=== PATIENT | male | born 1965 | race Caucasian/White ===

== ENCOUNTER 2017-05-29 16:54 | Emergency (ER) | payer MEDICAID ==
[~2017-05-29] VITALS: Ht 182.9 cm; Wt 71.0 kg
[~2017-05-29 16:54] MED LIST: DIVA500T35 PO; DOCU250C91 PO; METF500T4 PO; NYST60PO TP; OLAN10TA6 PO; PANT40TA25 PO
[2017-05-29] MEDS ORDERED: ACETAMINOPHEN 325 MG TABLET PO ONE (19:00)
[2017-05-29 19:35] VITALS: BP 115/71
== END 2017-05-29 19:42 | disposition home or self-care (01) ==
LOC: EMS 16:56
DX: S39.012A Strain of muscle, fascia and tendon of lower back, initial encounter (principal); G89.29 Other chronic pain; M10.9 Gout, unspecified; E11.9 Type 2 diabetes mellitus without complications; F17.210 Nicotine dependence, cigarettes, uncomplicated; X58.XXXA Exposure to other specified factors, initial encounter; Y93.89 Activity, other specified; Y92.89 Other specified places as the place of occurrence of the external cause; Y99.8 Other external cause status
CPT/HCPCS: 82962; 99283; 99406

== ENCOUNTER 2017-10-30 14:43 | Emergency (ER) | payer MEDICAID ==
[~2017-10-30] VITALS: Ht 182.9 cm; Wt 68.2 kg
[~2017-10-30 14:43] MED LIST changes: +DIVA-78 PO; -DIVA500T35 PO; -METF500T4 PO; +METF500T6 PO
[2017-10-30 15:27] LABS: BASOPHILS % (AUTO) 0.4 % (0.0-2.0); EOSINOPHILS % (AUTO) 1.6 % (1.0-6.0); HEMATOCRIT 38.7 % (41-53); HEMOGLOBIN 13.7 g/dL (13.5-17.5); LYMPHOCYTES # (AUTO) 1.6 K/uL (1.0-4.8); LYMPHOCYTES % (AUTO) 15.2 % (22.0-44.0); MEAN CORPUSCULAR HEMOGLOBIN 32.3 pg (26.0-34.0); MEAN CORPUSCULAR HGB CONC 35.5 G/dL (31.0-37.0); MEAN CORPUSCULAR VOLUME 91 fL (80-100); MONOCYTES # (AUTO) 0.9 K/uL (0.1-1.0); MONOCYTES % (AUTO) 8.4 % (2.0-9.0); NEUTROPHILS # (AUTO) 7.8 K/uL (1.8-7.7); NEUTROPHILS % (AUTO) 74.4 % (40.0-70.0); PLATELET COUNT (AUTO) 266 K/uL (150-450); RED BLOOD CELL COUNT(AUTO) 4.25 MIL/uL (4.50-5.90); RED CELL DISTRIBUTION WIDTH 13.8 % (11.5-14.5)
[2017-10-30 15:38] LABS: ANION GAP 10 mmol/L (8-16); CALCIUM, TOTAL 8.8 mg/dL (8.8-10.5); CARBON DIOXIDE 25 mmol/L (22-29); CHLORIDE 103 mmol/L (98-107); GLOMERULAR FILTR. RATE CALC > 60 mL/min (>60); GLUCOSE,RANDOM 125 mg/dL (70-110); POTASSIUM 3.7 mmol/L (3.5-5.1); SODIUM SERUM 138 mmol/L (136-145); UREA NITROGEN, BLOOD 10 mg/dL (7-18)
[2017-10-30 15:43] LABS: ALANINE AMINOTRANSFERASE 22 U/L (12-78); ALBUMIN 3.7 g/dL (3.4-5.0); ALKALINE PHOSPHATASE 94 U/L (46-116); ASPARTATE AMINOTRANSFERASE 17 U/L (15-37); BILIRUBIN,TOTAL 0.6 mg/dL (0.1-1.0); TOTAL PROTEIN, SERUM 6.3 g/dL (6.4-8.2)
[2017-10-30 15:44] LABS: ACETAMINOPHEN < 2 mcg/mL (10-30); B-TYPE NATRIURETIC PEPTIDE 7 pg/mL (0-100); SALICYLATE 1.2 mg/dL (2.8-20.0)
[2017-10-30 15:46] LABS: AMMONIA < 10 umol/L (11-32); TROPONIN I < 0.02 ng/mL (0.00-0.05)
[2017-10-30 17:40] LABS: APPEARANCE,URINE CLEAR (CLEAR); BILIRUBIN,URINE NEGATIVE (NEGATIVE); GLUCOSE, URINE (UA) 100 mg/dL (NEGATIVE); KETONES,URINE TRACE mg/dL (NEGATIVE); LEUKOCYTE ESTERASE ,URINE NEGATIVE (NEGATIVE); NITRATE,URINE NEGATIVE (NEGATIVE); OCCULT BLOOD,URINE NEGATIVE (NEGATIVE); PROTEIN,URINE NEGATIVE (NEGATIVE)
[2017-10-30 17:47] LABS: AMPHET/METH SCREEN,URINE NEGATIVE (NEGATIVE); BARBITURATE SCREEN, URINE NEGATIVE (NEGATIVE); BENZODIAZEPINES SCREEN,URINE NEGATIVE (NEGATIVE); CANNABINOID SCREEN,URINE NEGATIVE (NEGATIVE); COCAINE SCREEN,URINE NEGATIVE (NEGATIVE); METHADONE SCREEN, URINE NEGATIVE (NEGATIVE); OPIATE SCREEN,URINE NEGATIVE (NEGATIVE)
[2017-10-30 17:48] LABS: PHENCYCLIDINE SCREEN,URINE NEGATIVE (NEGATIVE)
[2017-10-30 17:50] VITALS: BP 129/91
[2017-10-30 17:50] LABS: BACTERIA,URINE None Seen /HPF (None Seen); RBC,URINE None Seen /HPF (0-2)
[2017-10-30 17:51] LABS: SQUAMOUS EPITHELIAL CELL,UR Rare /LPF (None Seen)
== END 2017-10-30 19:06 | disposition home or self-care (01) ==
LOC: EMS 14:43
DX: F20.9 Schizophrenia, unspecified (principal); R10.84 Generalized abdominal pain; F31.9 Bipolar disorder, unspecified; E11.9 Type 2 diabetes mellitus without complications; E78.00 Pure hypercholesterolemia, unspecified; I10 Essential (primary) hypertension; G89.29 Other chronic pain; F17.210 Nicotine dependence, cigarettes, uncomplicated; Z94.0 Kidney transplant status; Z88.8 Allergy status to other drugs, medicaments and biological substances; Z91.040 Latex allergy status; Z79.84 Long term (current) use of oral hypoglycemic drugs
CPT/HCPCS: 36415; 80053; 80307; 81001; 82140; 82962; 83880; 84484; 85025; 87086; 93005; 99285; G0480 ×2; G0481

== ENCOUNTER 2017-12-02 03:47 | Emergency (ER) | payer MEDICAID ==
[~2017-12-02] VITALS: Ht 182.9 cm; Wt 61.4 kg
[~2017-12-02 03:47] MED LIST changes: +METF-960 PO; -METF500T6 PO
[2017-12-02 04:03] LABS: GLUCOSE,POINT OF CARE 174 MG/DL (70-110)
[2017-12-02] MEDS ORDERED: SODIUM PHOS/SODIUM BIPHOS 133 ML ENEMA PR ONE (04:15)
[2017-12-02 05:30] VITALS: BP 120/74
== END 2017-12-02 06:04 | disposition home or self-care (01) ==
LOC: EMS 03:47
DX: K56.41 Fecal impaction (principal); F17.210 Nicotine dependence, cigarettes, uncomplicated; Z98.890 Other specified postprocedural states; Z94.0 Kidney transplant status; F41.9 Anxiety disorder, unspecified; F31.9 Bipolar disorder, unspecified; E11.9 Type 2 diabetes mellitus without complications; E78.00 Pure hypercholesterolemia, unspecified; I10 Essential (primary) hypertension; F20.9 Schizophrenia, unspecified; N28.9 Disorder of kidney and ureter, unspecified; Z91.040 Latex allergy status; Z79.899 Other long term (current) drug therapy; Z88.8 Allergy status to other drugs, medicaments and biological substances; Z79.84 Long term (current) use of oral hypoglycemic drugs
CPT/HCPCS: 99284

== ENCOUNTER 2018-01-05 00:26 | Emergency (ER) | payer MEDICAID ==
[~2018-01-05] VITALS: Ht 185.4 cm; Wt 68.2 kg
[2018-01-05 01:46] LABS: BASOPHILS % (AUTO) 0.9 % (0.0-2.0); EOSINOPHILS % (AUTO) 3.4 % (1.0-6.0); HEMATOCRIT 40.3 % (41-53); HEMOGLOBIN 13.9 g/dL (13.5-17.5); LYMPHOCYTES # (AUTO) 1.9 K/uL (1.0-4.8); LYMPHOCYTES % (AUTO) 20.3 % (22.0-44.0); MEAN CORPUSCULAR HEMOGLOBIN 31.7 pg (26.0-34.0); MEAN CORPUSCULAR HGB CONC 34.5 G/dL (31.0-37.0); MEAN CORPUSCULAR VOLUME 92 fL (80-100); MONOCYTES # (AUTO) 0.9 K/uL (0.1-1.0); MONOCYTES % (AUTO) 9.5 % (2.0-9.0); NEUTROPHILS # (AUTO) 6.3 K/uL (1.8-7.7); NEUTROPHILS % (AUTO) 65.9 % (40.0-70.0); PLATELET COUNT (AUTO) 175 K/uL (150-450); RED BLOOD CELL COUNT(AUTO) 4.37 MIL/uL (4.50-5.90); RED CELL DISTRIBUTION WIDTH 13.9 % (11.5-14.5)
[2018-01-05 01:52] LABS: ANION GAP 11 mmol/L (8-16); CALCIUM, TOTAL 9.2 mg/dL (8.8-10.5); CARBON DIOXIDE 27 mmol/L (22-29); CHLORIDE 103 mmol/L (98-107); CREATININE 0.92 mg/dL (0.60-1.30); GLOMERULAR FILTR. RATE CALC > 60 mL/min (>60); GLUCOSE,RANDOM 141 mg/dL (70-110); POTASSIUM 3.6 mmol/L (3.5-5.1); SODIUM SERUM 141 mmol/L (136-145); UREA NITROGEN, BLOOD 12 mg/dL (7-18)
[2018-01-05 01:58] LABS: ALANINE AMINOTRANSFERASE 75 U/L (12-78); ALKALINE PHOSPHATASE 109 U/L (46-116); ASPARTATE AMINOTRANSFERASE 23 U/L (15-37); BILIRUBIN,TOTAL 0.5 mg/dL (0.1-1.0); TOTAL PROTEIN, SERUM 5.8 g/dL (6.4-8.2)
[2018-01-05] MEDS ORDERED: ACETAMINOPHEN 500 MG TABLET PO ONE (02:00)
[2018-01-05] MEDS ORDERED: MAG HYDROX/AL HYDROX/SIMETH ES 30 ML SUSPENSION UDCUP PO ONE (02:00)
[2018-01-05 02:46] VITALS: BP 117/71
[2018-01-05 02:52] LABS: AMPHET/METH SCREEN,URINE NEGATIVE (NEGATIVE); BARBITURATE SCREEN, URINE NEGATIVE (NEGATIVE); BENZODIAZEPINES SCREEN,URINE NEGATIVE (NEGATIVE); CANNABINOID SCREEN,URINE NEGATIVE (NEGATIVE); COCAINE SCREEN,URINE NEGATIVE (NEGATIVE); METHADONE SCREEN, URINE NEGATIVE (NEGATIVE); OPIATE SCREEN,URINE NEGATIVE (NEGATIVE)
[2018-01-05 02:55] LABS: PHENCYCLIDINE SCREEN,URINE NEGATIVE (NEGATIVE)
== END 2018-01-05 02:48 | disposition home or self-care (01) ==
LOC: EMS 00:27
DX: F20.9 Schizophrenia, unspecified (principal); F31.9 Bipolar disorder, unspecified; R10.13 Epigastric pain; R51 Headache; I10 Essential (primary) hypertension; E78.00 Pure hypercholesterolemia, unspecified; E11.9 Type 2 diabetes mellitus without complications; F41.9 Anxiety disorder, unspecified; F17.210 Nicotine dependence, cigarettes, uncomplicated; Z91.040 Latex allergy status; Z88.8 Allergy status to other drugs, medicaments and biological substances
CPT/HCPCS: 36415; 80053; 80307; 82962; 85025; 99285; G0480

== ENCOUNTER 2018-10-29 12:51 | Inpatient (IN) | payer MEDICAID ==
[~2018-10-29] VITALS: Ht 172.7 cm; Wt 66.6 kg
[2018-10-29] MEDS ORDERED: ASPI81 PO (13:16)
[2018-10-29] MEDS ORDERED: ATOR10TA84 PO (13:16)
[2018-10-29] MEDS ORDERED: QUET100T PO (13:16)
[2018-10-29] MEDS ORDERED: BENZ1TAB10 PO (13:16)
[2018-10-29 13:20] LABS: BASOPHILS % (AUTO) 0.5 % (0.0-2.0); EOSINOPHILS % (AUTO) 1.2 % (1.0-6.0); HEMATOCRIT 41.4 % (41-53); HEMOGLOBIN 13.7 g/dL (13.5-17.5); LYMPHOCYTES # (AUTO) 1.3 K/uL (1.0-4.8); LYMPHOCYTES % (AUTO) 15.9 % (22.0-44.0); MEAN CORPUSCULAR HEMOGLOBIN 31.8 pg (26.0-34.0); MEAN CORPUSCULAR HGB CONC 33.1 G/dL (31.0-37.0); MEAN CORPUSCULAR VOLUME 96 fL (80-100); MONOCYTES % (AUTO) 11.8 % (2.0-9.0); NEUTROPHILS # (AUTO) 5.9 K/uL (1.8-7.7); NEUTROPHILS % (AUTO) 70.6 % (40.0-70.0); PLATELET COUNT (AUTO) 196 K/uL (150-450); RED BLOOD CELL COUNT(AUTO) 4.32 MIL/uL (4.50-5.90); RED CELL DISTRIBUTION WIDTH 14.7 % (11.5-14.5)
[2018-10-29 13:25] LABS: ANION GAP 9 mmol/L (8-16); CALCIUM, TOTAL 8.8 mg/dL (8.8-10.5); CARBON DIOXIDE 29 mmol/L (22-29); CHLORIDE 102 mmol/L (98-107); CREATININE 1.15 mg/dL (0.60-1.30); GLOMERULAR FILTR. RATE CALC > 60 mL/min (>60); GLUCOSE,RANDOM 162 mg/dL (70-110); POTASSIUM 3.6 mmol/L (3.5-5.1); SODIUM SERUM 140 mmol/L (136-145); UREA NITROGEN, BLOOD 15 mg/dL (7-18)
[2018-10-29 13:30] LABS: ALANINE AMINOTRANSFERASE 27 U/L (12-78); ALBUMIN 3.4 g/dL (3.4-5.0); ALKALINE PHOSPHATASE 83 U/L (46-116); ASPARTATE AMINOTRANSFERASE 48 U/L (15-37); BILIRUBIN,TOTAL 0.5 mg/dL (0.1-1.0); TOTAL PROTEIN, SERUM 6.8 g/dL (6.4-8.2)
[2018-10-29 15:19] LABS: GLUCOSE,POINT OF CARE 148 MG/DL (70-110)
[2018-10-29 16:59] LABS: APPEARANCE,URINE CLEAR (CLEAR); GLUCOSE, URINE (UA) 100 mg/dL (NEGATIVE); KETONES,URINE 15 mg/dL (NEGATIVE); LEUKOCYTE ESTERASE ,URINE NEGATIVE (NEGATIVE); NITRATE,URINE NEGATIVE (NEGATIVE); OCCULT BLOOD,URINE NEGATIVE (NEGATIVE); PROTEIN,URINE POS 1+ (NEGATIVE)
[2018-10-29 17:00] LABS: BILIRUBIN,URINE PRELIM. POSITIVE (NEGATIVE)
[2018-10-29 17:07] LABS: BACTERIA,URINE None Seen /HPF (None Seen); RBC,URINE None Seen /HPF (0-2); SQUAMOUS EPITHELIAL CELL,UR Rare /LPF (None Seen); WBC,URINE 0-2 /HPF (0-5)
[2018-10-29 17:08] LABS: AMPHET/METH SCREEN,URINE NEGATIVE (NEGATIVE); BARBITURATE SCREEN, URINE NEGATIVE (NEGATIVE); BENZODIAZEPINES SCREEN,URINE NEGATIVE (NEGATIVE); CANNABINOID SCREEN,URINE NEGATIVE (NEGATIVE); COCAINE SCREEN,URINE NEGATIVE (NEGATIVE); METHADONE SCREEN, URINE NEGATIVE (NEGATIVE); OPIATE SCREEN,URINE NEGATIVE (NEGATIVE); PHENCYCLIDINE SCREEN,URINE NEGATIVE (NEGATIVE)
[2018-10-29] MEDS ORDERED: DIVA-76 PO (17:50)
[2018-10-29 20:35] VITALS: BP 128/78
[2018-10-29] MEDS: OLANZapine 5 MG TABLET PO SCH (21:11)
[2018-10-29] MEDS ORDERED: CloNIDine HCL 0.1 MG TABLET PO PRN (21:15)
[2018-10-29] MEDS ORDERED: MAG HYDROX/AL HYDROX/SIMETH ES 30 ML SUSPENSION UDCUP PO PRN (21:15)
[2018-10-29] MEDS ORDERED: ALBUTEROL SULFATE HFA 90 MCG/PUFF 8 GM INHALER IH PRN (21:15)
[2018-10-29] MEDS ORDERED: NICOTINE 14 MG/24 HOUR PATCH TD PRN (21:15)
[2018-10-29] MEDS ORDERED: ONDANSETRON HCL 4 MG TABLET PO PRN (21:15)
[2018-10-29] MEDS ORDERED: MAGNESIUM HYDROXIDE SUSPENSION 30 ML UDCUP PO PRN (21:15)
[2018-10-29] MEDS ORDERED: PETROLATUM,WHITE 28 GM JELLY TP PRN (21:15)
[2018-10-29] MEDS ORDERED: GuaiFENesin/D-METHORPHAN [SUGAR-FREE] 200-20MG/10 ML SYRUP UDCUP PO PRN (21:15)
[2018-10-29] MEDS ORDERED: LOPERAMIDE HCL 2 MG CAPSULE PO PRN (21:15)
[2018-10-29] MEDS ORDERED: ACETAMINOPHEN 325 MG TABLET PO PRN (21:15)
[2018-10-30] MEDS: ZOLPIDEM TARTRATE 10 MG TABLET PO PRN (00:17)
[2018-10-30 06:35] LABS: BASOPHILS % (AUTO) 0.5 % (0.0-2.0); EOSINOPHILS % (AUTO) 4.4 % (1.0-6.0); HEMATOCRIT 38.6 % (41-53); LYMPHOCYTES # (AUTO) 2.2 K/uL (1.0-4.8); MEAN CORPUSCULAR HEMOGLOBIN 32.3 pg (26.0-34.0); MEAN CORPUSCULAR HGB CONC 33.7 G/dL (31.0-37.0); MEAN CORPUSCULAR VOLUME 96 fL (80-100); MONOCYTES # (AUTO) 0.8 K/uL (0.1-1.0); MONOCYTES % (AUTO) 10.6 % (2.0-9.0); NEUTROPHILS # (AUTO) 4.4 K/uL (1.8-7.7); NEUTROPHILS % (AUTO) 56.5 % (40.0-70.0); PLATELET COUNT (AUTO) 181 K/uL (150-450); RED BLOOD CELL COUNT(AUTO) 4.03 MIL/uL (4.50-5.90); RED CELL DISTRIBUTION WIDTH 14.7 % (11.5-14.5)
[2018-10-30 06:39] LABS: HEMOGLOBIN A1C 6.9 % (4.5-6.2)
[2018-10-30] MEDS: MetFORMIN HCL 500 MG TABLET PO SCH ×2 (06:42→16:18)
[2018-10-30 06:59] LABS: ALANINE AMINOTRANSFERASE 20 U/L (12-78); ALBUMIN 2.7 g/dL (3.4-5.0); ALKALINE PHOSPHATASE 70 U/L (46-116); ANION GAP 10 mmol/L (8-16); ASPARTATE AMINOTRANSFERASE 40 U/L (15-37); BILIRUBIN,TOTAL 0.7 mg/dL (0.1-1.0); CALCIUM, TOTAL 8.3 mg/dL (8.8-10.5); CARBON DIOXIDE 27 mmol/L (22-29); CHLORIDE 102 mmol/L (98-107); CHOL/HDL RATIO 2.1 (4.2-7.3); CHOLESTEROL 96 mg/dL (131-200); CREATININE 0.82 mg/dL (0.60-1.30); GLOMERULAR FILTR. RATE CALC > 60 mL/min (>60); GLUCOSE,RANDOM 90 mg/dL (70-110); HDL CHOLESTEROL 45 mg/dL (40-60); LDL CHOL (CALC.) 37 mg/dL (0-130); POTASSIUM 3.5 mmol/L (3.5-5.1); SODIUM SERUM 139 mmol/L (136-145); TOTAL PROTEIN, SERUM 5.6 g/dL (6.4-8.2); TRIGLYCERIDES 70 mg/dL (15-150); UREA NITROGEN, BLOOD 12 mg/dL (7-18)
[2018-10-30] MEDS: DOCUSATE SODIUM 250 MG CAPSULE PO SCH ×2 (08:51→16:18)
[2018-10-30] MEDS: NYSTATIN 30 GM OINTMENT TP SCH ×2 (08:51→16:19)
[2018-10-30] MEDS: PANTOPRAZOLE SODIUM 40 MG DR TABLET PO SCH (08:51)
[2018-10-30] MEDS: OLANZapine 5 MG TABLET PO SCH ×2 (08:52→16:18)
[2018-10-30] MEDS: ASPIRIN 81 MG CHEWABLE TABLET PO SCH (08:52)
[2018-10-30] MEDS: BuPROPion HCL XL 150 MG ER TABLET PO SCH (08:54)
[2018-10-30 09:00] VITALS: BP 121/74
[2018-10-30 16:38] VITALS: BP 129/90
[2018-10-30] MEDS: ATORVASTATIN CALCIUM 10 MG TABLET PO SCH (20:27)
[2018-10-30] MEDS: DIVALPROEX SODIUM 250 MG DR TABLET PO SCH (20:28)
[2018-10-30] MEDS: OLANZapine 10 MG RAPDIS TABLET PO SCH (20:30)
[2018-10-31 06:37] VITALS: BP 113/73
[2018-10-31] MEDS: MetFORMIN HCL 500 MG TABLET PO SCH ×2 (06:38→16:59)
[2018-10-31] MEDS: ASPIRIN 81 MG CHEWABLE TABLET PO SCH (08:54)
[2018-10-31] MEDS: OLANZapine 5 MG TABLET PO SCH ×2 (08:54→16:59)
[2018-10-31] MEDS: PANTOPRAZOLE SODIUM 40 MG DR TABLET PO SCH (08:54)
[2018-10-31] MEDS: BuPROPion HCL XL 150 MG ER TABLET PO SCH (08:54)
[2018-10-31] MEDS: NYSTATIN 30 GM OINTMENT TP SCH ×2 (09:21→17:02)
[2018-10-31] MEDS: DOCUSATE SODIUM 250 MG CAPSULE PO SCH ×2 (09:21→17:03)
[2018-10-31 09:43] VITALS: BP 127/66
[2018-10-31] MEDS: DOCUSATE SODIUM 100 MG CAPSULE PO PRN (16:59)
[2018-10-31 17:14] VITALS: BP 131/89
[2018-10-31] MEDS: ATORVASTATIN CALCIUM 10 MG TABLET PO SCH (20:38)
[2018-10-31] MEDS: DIVALPROEX SODIUM 250 MG DR TABLET PO SCH (20:39)
[2018-10-31] MEDS: OLANZapine 10 MG RAPDIS TABLET PO SCH (20:40)
[2018-11-01 06:40] LABS: GLUCOMETER DEV NAME(LOC) 3E.I; GLUCOSE,POINT OF CARE 118 MG/DL (70-110)
[2018-11-01] MEDS: HALOPERIDOL 5 MG TABLET PO PRN (06:44)
[2018-11-01] MEDS: MetFORMIN HCL 500 MG TABLET PO SCH ×2 (07:04→17:15)
[2018-11-01] MEDS: OLANZapine 5 MG TABLET PO SCH ×2 (08:38→17:16)
[2018-11-01] MEDS: ASPIRIN 81 MG CHEWABLE TABLET PO SCH (08:38)
[2018-11-01] MEDS: DOCUSATE SODIUM 250 MG CAPSULE PO SCH ×2 (08:38→17:16)
[2018-11-01] MEDS: BuPROPion HCL XL 150 MG ER TABLET PO SCH (08:38)
[2018-11-01] MEDS: NYSTATIN 30 GM OINTMENT TP SCH ×2 (08:38→17:15)
[2018-11-01] MEDS: PANTOPRAZOLE SODIUM 40 MG DR TABLET PO SCH (08:38)
[2018-11-01 09:52] VITALS: BP 130/83
[2018-11-01 16:30] VITALS: BP 131/87
[2018-11-01 17:14] LABS: GLUCOMETER DEV NAME(LOC) 3E.I; GLUCOSE,POINT OF CARE 139 MG/DL (70-110)
[2018-11-01] MEDS: DOCUSATE SODIUM 100 MG CAPSULE PO PRN (17:15)
[2018-11-01] MEDS: DIVALPROEX SODIUM 250 MG DR TABLET PO SCH (20:41)
[2018-11-01] MEDS: ATORVASTATIN CALCIUM 10 MG TABLET PO SCH (20:41)
[2018-11-01] MEDS: OLANZapine 10 MG RAPDIS TABLET PO SCH (20:41)
[2018-11-02 05:35] LABS: GLUCOMETER DEV NAME(LOC) 3E.I; GLUCOSE,POINT OF CARE 88 MG/DL (70-110)
[2018-11-02] MEDS: MetFORMIN HCL 500 MG TABLET PO SCH ×2 (06:54→16:50)
[2018-11-02] MEDS: OLANZapine 5 MG TABLET PO SCH ×2 (08:38→16:50)
[2018-11-02] MEDS: PANTOPRAZOLE SODIUM 40 MG DR TABLET PO SCH (08:38)
[2018-11-02] MEDS: DOCUSATE SODIUM 250 MG CAPSULE PO SCH ×2 (08:38→16:50)
[2018-11-02] MEDS: ASPIRIN 81 MG CHEWABLE TABLET PO SCH (08:38)
[2018-11-02] MEDS: NYSTATIN 30 GM OINTMENT TP SCH ×2 (08:38→17:55)
[2018-11-02] MEDS: BuPROPion HCL XL 150 MG ER TABLET PO SCH (08:38)
[2018-11-02 10:24] VITALS: BP 118/87
[2018-11-02 17:01] LABS: GLUCOMETER DEV NAME(LOC) 3E.I; GLUCOSE,POINT OF CARE 162 MG/DL (70-110)
[2018-11-02] MEDS: OLANZapine 10 MG RAPDIS TABLET PO SCH (21:13)
[2018-11-02] MEDS: ATORVASTATIN CALCIUM 10 MG TABLET PO SCH (21:13)
[2018-11-02] MEDS: DIVALPROEX SODIUM 250 MG DR TABLET PO SCH (21:13)
[2018-11-03] MEDS: ZOLPIDEM TARTRATE 10 MG TABLET PO PRN (00:14)
[2018-11-03] MEDS: HALOPERIDOL 5 MG TABLET PO PRN (00:14)
[2018-11-03 05:45] LABS: GLUCOMETER DEV NAME(LOC) 3E.I; GLUCOSE,POINT OF CARE 91 MG/DL (70-110)
[2018-11-03] MEDS: MetFORMIN HCL 500 MG TABLET PO SCH ×2 (06:36→17:15)
[2018-11-03 08:00] VITALS: BP 112/85
[2018-11-03] MEDS: OLANZapine 5 MG TABLET PO SCH ×2 (10:57→17:15)
[2018-11-03] MEDS: ASPIRIN 81 MG CHEWABLE TABLET PO SCH (10:58)
[2018-11-03] MEDS: PANTOPRAZOLE SODIUM 40 MG DR TABLET PO SCH (10:58)
[2018-11-03] MEDS: BuPROPion HCL XL 150 MG ER TABLET PO SCH (10:58)
[2018-11-03] MEDS: DOCUSATE SODIUM 100 MG CAPSULE PO PRN (10:58)
[2018-11-03] MEDS: DOCUSATE SODIUM 250 MG CAPSULE PO SCH ×2 (10:59→17:15)
[2018-11-03] MEDS: NYSTATIN 30 GM OINTMENT TP SCH ×2 (10:59→17:15)
[2018-11-03 16:47] VITALS: BP 120/80
[2018-11-03 17:45] LABS: GLUCOMETER DEV NAME(LOC) 3E.I; GLUCOSE,POINT OF CARE 136 MG/DL (70-110)
[2018-11-03] MEDS: ATORVASTATIN CALCIUM 10 MG TABLET PO SCH (20:40)
[2018-11-03] MEDS: OLANZapine 10 MG RAPDIS TABLET PO SCH (20:40)
[2018-11-03] MEDS: DIVALPROEX SODIUM 250 MG DR TABLET PO SCH (20:40)
[2018-11-04 06:25] LABS: GLUCOMETER DEV NAME(LOC) 3E.I; GLUCOSE,POINT OF CARE 95 MG/DL (70-110)
[2018-11-04] MEDS: MetFORMIN HCL 500 MG TABLET PO SCH ×2 (06:54→17:09)
[2018-11-04 09:45] VITALS: BP 113/67
[2018-11-04] MEDS: ASPIRIN 81 MG CHEWABLE TABLET PO SCH (10:27)
[2018-11-04] MEDS: NYSTATIN 30 GM OINTMENT TP SCH ×2 (10:27→17:10)
[2018-11-04] MEDS: OLANZapine 5 MG TABLET PO SCH (10:27)
[2018-11-04] MEDS: BuPROPion HCL XL 150 MG ER TABLET PO SCH (10:27)
[2018-11-04] MEDS: PANTOPRAZOLE SODIUM 40 MG DR TABLET PO SCH (10:27)
[2018-11-04] MEDS: DOCUSATE SODIUM 250 MG CAPSULE PO SCH ×2 (10:29→17:09)
[2018-11-04 17:25] LABS: GLUCOMETER DEV NAME(LOC) 3E.I; GLUCOSE,POINT OF CARE 114 MG/DL (70-110)
[2018-11-04 18:39] VITALS: BP 129/66
[2018-11-04] MEDS: DIVALPROEX SODIUM 250 MG DR TABLET PO SCH (21:17)
[2018-11-04] MEDS: ATORVASTATIN CALCIUM 10 MG TABLET PO SCH (21:17)
[2018-11-04] MEDS: OLANZapine 10 MG TABLET PO SCH (21:30)
[2018-11-05 06:15] LABS: GLUCOMETER DEV NAME(LOC) 3E.I; GLUCOSE,POINT OF CARE 99 MG/DL (70-110)
[2018-11-05] MEDS: MetFORMIN HCL 500 MG TABLET PO SCH ×2 (06:37→16:58)
[2018-11-05 08:00] VITALS: BP 111/77
[2018-11-05] MEDS: DOCUSATE SODIUM 250 MG CAPSULE PO SCH ×2 (09:45→16:26)
[2018-11-05] MEDS: PANTOPRAZOLE SODIUM 40 MG DR TABLET PO SCH (09:45)
[2018-11-05] MEDS: BuPROPion HCL XL 150 MG ER TABLET PO SCH (09:45)
[2018-11-05] MEDS: ASPIRIN 81 MG CHEWABLE TABLET PO SCH (09:45)
[2018-11-05] MEDS: OLANZapine 10 MG TABLET PO SCH ×2 (09:45→20:09)
[2018-11-05] MEDS: NYSTATIN 30 GM OINTMENT TP SCH ×2 (09:46→16:15)
[2018-11-05] MEDS: DOCUSATE SODIUM 100 MG CAPSULE PO PRN (16:15)
[2018-11-05 19:03] VITALS: BP 104/72
[2018-11-05 20:05] LABS: GLUCOMETER DEV NAME(LOC) 3E.I; GLUCOSE,POINT OF CARE 146 MG/DL (70-110)
[2018-11-05] MEDS: ATORVASTATIN CALCIUM 10 MG TABLET PO SCH (20:09)
[2018-11-05] MEDS: DIVALPROEX SODIUM 500 MG DR TABLET PO SCH (20:10)
[2018-11-05] MEDS: ZOLPIDEM TARTRATE 10 MG TABLET PO PRN (21:11)
[2018-11-06 05:25] LABS: GLUCOMETER DEV NAME(LOC) 3E.I; GLUCOSE,POINT OF CARE 86 MG/DL (70-110)
[2018-11-06] MEDS: MetFORMIN HCL 500 MG TABLET PO SCH ×2 (06:39→16:19)
[2018-11-06 08:00] VITALS: BP 118/55
[2018-11-06] MEDS: DIVALPROEX SODIUM 500 MG DR TABLET PO SCH ×2 (09:17→20:32)
[2018-11-06] MEDS: PANTOPRAZOLE SODIUM 40 MG DR TABLET PO SCH (09:17)
[2018-11-06] MEDS: OLANZapine 10 MG TABLET PO SCH ×2 (09:17→20:32)
[2018-11-06] MEDS: DOCUSATE SODIUM 250 MG CAPSULE PO SCH ×2 (09:17→16:19)
[2018-11-06] MEDS: ASPIRIN 81 MG CHEWABLE TABLET PO SCH (09:17)
[2018-11-06] MEDS: BuPROPion HCL XL 150 MG ER TABLET PO SCH (09:17)
[2018-11-06] MEDS: NYSTATIN 30 GM OINTMENT TP SCH ×2 (09:17→16:19)
[2018-11-06 16:25] LABS: GLUCOMETER DEV NAME(LOC) 3E.C; GLUCOSE,POINT OF CARE 119 MG/DL (70-110)
[2018-11-06] MEDS: ATORVASTATIN CALCIUM 10 MG TABLET PO SCH (20:32)
[2018-11-06 20:33] VITALS: BP 111/81
[2018-11-07 05:41] LABS: GLUCOMETER DEV NAME(LOC) 3E.I; GLUCOSE,POINT OF CARE 107 MG/DL (70-110)
[2018-11-07] MEDS: MetFORMIN HCL 500 MG TABLET PO SCH ×2 (06:38→16:33)
[2018-11-07] MEDS: DOCUSATE SODIUM 250 MG CAPSULE PO SCH ×2 (08:38→16:33)
[2018-11-07] MEDS: ASPIRIN 81 MG CHEWABLE TABLET PO SCH (08:38)
[2018-11-07] MEDS: DIVALPROEX SODIUM 500 MG DR TABLET PO SCH ×2 (08:38→21:15)
[2018-11-07] MEDS: BuPROPion HCL XL 150 MG ER TABLET PO SCH (08:38)
[2018-11-07] MEDS: NYSTATIN 30 GM OINTMENT TP SCH ×2 (08:38→16:33)
[2018-11-07] MEDS: PANTOPRAZOLE SODIUM 40 MG DR TABLET PO SCH (08:38)
[2018-11-07] MEDS: OLANZapine 10 MG TABLET PO SCH ×2 (08:38→21:15)
[2018-11-07 10:33] VITALS: BP 134/76
[2018-11-07 16:35] LABS: GLUCOMETER DEV NAME(LOC) 3E.I; GLUCOSE,POINT OF CARE 119 MG/DL (70-110)
[2018-11-07 16:55] VITALS: BP 127/85
[2018-11-07] MEDS: ATORVASTATIN CALCIUM 10 MG TABLET PO SCH (21:15)
[2018-11-08 06:07] LABS: BASOPHILS % (AUTO) 0.5 % (0.0-2.0); HEMATOCRIT 39.4 % (41-53); HEMOGLOBIN 13.5 g/dL (13.5-17.5); LYMPHOCYTES # (AUTO) 2.3 K/uL (1.0-4.8); LYMPHOCYTES % (AUTO) 38.4 % (22.0-44.0); MEAN CORPUSCULAR HEMOGLOBIN 32.7 pg (26.0-34.0); MEAN CORPUSCULAR HGB CONC 34.3 G/dL (31.0-37.0); MEAN CORPUSCULAR VOLUME 95 fL (80-100); MONOCYTES # (AUTO) 0.8 K/uL (0.1-1.0); MONOCYTES % (AUTO) 12.8 % (2.0-9.0); NEUTROPHILS # (AUTO) 2.6 K/uL (1.8-7.7); NEUTROPHILS % (AUTO) 43.3 % (40.0-70.0); PLATELET COUNT (AUTO) 212 K/uL (150-450); RED BLOOD CELL COUNT(AUTO) 4.13 MIL/uL (4.50-5.90); RED CELL DISTRIBUTION WIDTH 14.5 % (11.5-14.5)
[2018-11-08 06:17] LABS: GLUCOMETER DEV NAME(LOC) 3E.I; GLUCOSE,POINT OF CARE 103 MG/DL (70-110)
[2018-11-08] MEDS: MetFORMIN HCL 500 MG TABLET PO SCH ×2 (06:38→17:20)
[2018-11-08 06:39] LABS: ALANINE AMINOTRANSFERASE 16 U/L (12-78); ALKALINE PHOSPHATASE 64 U/L (46-116); ANION GAP 10 mmol/L (8-16); ASPARTATE AMINOTRANSFERASE 17 U/L (15-37); BILIRUBIN,TOTAL 0.4 mg/dL (0.1-1.0); CALCIUM, TOTAL 8.8 mg/dL (8.8-10.5); CARBON DIOXIDE 29 mmol/L (22-29); CHLORIDE 106 mmol/L (98-107); CREATININE 0.89 mg/dL (0.60-1.30); GLOMERULAR FILTR. RATE CALC > 60 mL/min (>60); GLUCOSE,RANDOM 101 mg/dL (70-110); POTASSIUM 3.9 mmol/L (3.5-5.1); SODIUM SERUM 145 mmol/L (136-145); TOTAL PROTEIN, SERUM 5.7 g/dL (6.4-8.2); UREA NITROGEN, BLOOD 15 mg/dL (7-18)
[2018-11-08] MEDS: BuPROPion HCL XL 150 MG ER TABLET PO SCH (08:49)
[2018-11-08] MEDS: OLANZapine 10 MG TABLET PO SCH ×2 (08:49→20:10)
[2018-11-08] MEDS: ASPIRIN 81 MG CHEWABLE TABLET PO SCH (08:49)
[2018-11-08] MEDS: PANTOPRAZOLE SODIUM 40 MG DR TABLET PO SCH (08:49)
[2018-11-08] MEDS: DIVALPROEX SODIUM 500 MG DR TABLET PO SCH ×2 (08:50→20:10)
[2018-11-08] MEDS: DOCUSATE SODIUM 250 MG CAPSULE PO SCH ×2 (08:50→17:20)
[2018-11-08] MEDS: NYSTATIN 30 GM OINTMENT TP SCH ×2 (08:50→17:21)
[2018-11-08 10:32] VITALS: BP 102/74
[2018-11-08 17:46] LABS: GLUCOMETER DEV NAME(LOC) 3E.I; GLUCOSE,POINT OF CARE 133 MG/DL (70-110)
[2018-11-08 17:47] VITALS: BP 141/77
[2018-11-08] MEDS: ATORVASTATIN CALCIUM 10 MG TABLET PO SCH (20:10)
[2018-11-09 06:40] LABS: GLUCOMETER DEV NAME(LOC) 3E.I; GLUCOSE,POINT OF CARE 106 MG/DL (70-110)
[2018-11-09] MEDS: MetFORMIN HCL 500 MG TABLET PO SCH ×2 (06:46→17:04)
[2018-11-09] MEDS: NYSTATIN 30 GM OINTMENT TP SCH ×2 (09:00→17:04)
[2018-11-09] MEDS: OLANZapine 10 MG TABLET PO SCH ×2 (10:30→20:18)
[2018-11-09] MEDS: DIVALPROEX SODIUM 500 MG DR TABLET PO SCH ×2 (10:30→20:18)
[2018-11-09] MEDS: PANTOPRAZOLE SODIUM 40 MG DR TABLET PO SCH (10:30)
[2018-11-09] MEDS: BuPROPion HCL XL 150 MG ER TABLET PO SCH (10:30)
[2018-11-09] MEDS: DOCUSATE SODIUM 250 MG CAPSULE PO SCH ×2 (10:33→17:04)
[2018-11-09] MEDS: ASPIRIN 81 MG CHEWABLE TABLET PO SCH (10:35)
[2018-11-09 13:37] VITALS: BP 107/76
[2018-11-09 16:55] LABS: GLUCOMETER DEV NAME(LOC) 3E.I; GLUCOSE,POINT OF CARE 106 MG/DL (70-110)
[2018-11-09 16:57] VITALS: BP 111/78
[2018-11-09] MEDS: ATORVASTATIN CALCIUM 10 MG TABLET PO SCH (20:18)
[2018-11-10 06:07] LABS: GLUCOMETER DEV NAME(LOC) 3E.I; GLUCOSE,POINT OF CARE 120 MG/DL (70-110)
[2018-11-10] MEDS: MetFORMIN HCL 500 MG TABLET PO SCH ×2 (06:39→16:55)
[2018-11-10] MEDS: DOCUSATE SODIUM 250 MG CAPSULE PO SCH ×2 (09:21→16:55)
[2018-11-10] MEDS: OLANZapine 10 MG TABLET PO SCH ×2 (09:21→20:38)
[2018-11-10] MEDS: BuPROPion HCL XL 150 MG ER TABLET PO SCH (09:21)
[2018-11-10] MEDS: DIVALPROEX SODIUM 500 MG DR TABLET PO SCH ×2 (09:21→20:38)
[2018-11-10] MEDS: ASPIRIN 81 MG CHEWABLE TABLET PO SCH (09:21)
[2018-11-10] MEDS: PANTOPRAZOLE SODIUM 40 MG DR TABLET PO SCH (09:21)
[2018-11-10 10:39] VITALS: BP 105/76
[2018-11-10] MEDS: NYSTATIN 30 GM OINTMENT TP SCH ×2 (11:34→16:55)
[2018-11-10 17:26] LABS: GLUCOMETER DEV NAME(LOC) 3E.I; GLUCOSE,POINT OF CARE 203 MG/DL (70-110)
[2018-11-10] MEDS: ATORVASTATIN CALCIUM 10 MG TABLET PO SCH (20:38)
[2018-11-11 00:21] VITALS: BP 120/76
[2018-11-11] MEDS: ZOLPIDEM TARTRATE 10 MG TABLET PO PRN (00:23)
[2018-11-11 06:26] LABS: GLUCOMETER DEV NAME(LOC) 3E.I; GLUCOSE,POINT OF CARE 96 MG/DL (70-110)
[2018-11-11] MEDS: MetFORMIN HCL 500 MG TABLET PO SCH ×2 (06:54→16:18)
[2018-11-11] MEDS: DOCUSATE SODIUM 250 MG CAPSULE PO SCH ×2 (09:32→16:19)
[2018-11-11] MEDS: PANTOPRAZOLE SODIUM 40 MG DR TABLET PO SCH (09:32)
[2018-11-11] MEDS: DIVALPROEX SODIUM 500 MG DR TABLET PO SCH ×2 (09:32→20:23)
[2018-11-11] MEDS: OLANZapine 10 MG TABLET PO SCH (09:33)
[2018-11-11] MEDS: BuPROPion HCL XL 150 MG ER TABLET PO SCH (09:33)
[2018-11-11] MEDS: ASPIRIN 81 MG CHEWABLE TABLET PO SCH (09:33)
[2018-11-11 10:39] VITALS: BP 95/73
[2018-11-11] MEDS: NYSTATIN 30 GM OINTMENT TP SCH ×2 (11:00→16:18)
[2018-11-11 16:39] LABS: GLUCOMETER DEV NAME(LOC) 3E.I; GLUCOSE,POINT OF CARE 154 MG/DL (70-110)
[2018-11-11 19:44] VITALS: BP 131/79
[2018-11-11] MEDS: OLANZapine 7.5 MG TABLET PO SCH (20:23)
[2018-11-11] MEDS: ATORVASTATIN CALCIUM 10 MG TABLET PO SCH (20:23)
[2018-11-12] MEDS: ZOLPIDEM TARTRATE 10 MG TABLET PO PRN (00:04)
[2018-11-12 05:30] LABS: GLUCOMETER DEV NAME(LOC) 3E.I; GLUCOSE,POINT OF CARE 97 MG/DL (70-110)
[2018-11-12] MEDS: MetFORMIN HCL 500 MG TABLET PO SCH ×2 (06:35→17:36)
[2018-11-12] MEDS: DOCUSATE SODIUM 250 MG CAPSULE PO SCH ×2 (10:00→17:36)
[2018-11-12] MEDS: PANTOPRAZOLE SODIUM 40 MG DR TABLET PO SCH (10:00)
[2018-11-12] MEDS: ASPIRIN 81 MG CHEWABLE TABLET PO SCH (10:00)
[2018-11-12] MEDS: BuPROPion HCL XL 150 MG ER TABLET PO SCH (10:00)
[2018-11-12] MEDS: OLANZapine 7.5 MG TABLET PO SCH ×2 (10:00→20:29)
[2018-11-12] MEDS: DIVALPROEX SODIUM 500 MG DR TABLET PO SCH ×2 (10:00→20:29)
[2018-11-12] MEDS: NYSTATIN 30 GM OINTMENT TP SCH ×2 (10:00→17:36)
[2018-11-12 10:27] VITALS: BP 119/77
[2018-11-12 17:21] LABS: GLUCOMETER DEV NAME(LOC) 3E.I; GLUCOSE,POINT OF CARE 108 MG/DL (70-110)
[2018-11-12 17:55] VITALS: BP 116/84
[2018-11-12] MEDS: ATORVASTATIN CALCIUM 10 MG TABLET PO SCH (20:29)
[2018-11-13] MEDS: ZOLPIDEM TARTRATE 10 MG TABLET PO PRN (00:02)
[2018-11-13 02:15] VITALS: BP 118/71
[2018-11-13 06:10] LABS: GLUCOMETER DEV NAME(LOC) 3E.I; GLUCOSE,POINT OF CARE 93 MG/DL (70-110)
[2018-11-13] MEDS: MetFORMIN HCL 500 MG TABLET PO SCH ×2 (06:59→16:24)
[2018-11-13] MEDS: NYSTATIN 30 GM OINTMENT TP SCH ×2 (09:54→16:23)
[2018-11-13] MEDS: BuPROPion HCL XL 150 MG ER TABLET PO SCH (09:56)
[2018-11-13] MEDS: OLANZapine 7.5 MG TABLET PO SCH ×2 (09:56→20:29)
[2018-11-13] MEDS: PANTOPRAZOLE SODIUM 40 MG DR TABLET PO SCH (09:56)
[2018-11-13] MEDS: ASPIRIN 81 MG CHEWABLE TABLET PO SCH (09:56)
[2018-11-13] MEDS: DOCUSATE SODIUM 250 MG CAPSULE PO SCH ×2 (09:57→16:23)
[2018-11-13] MEDS: DIVALPROEX SODIUM 500 MG DR TABLET PO SCH ×2 (09:57→20:28)
[2018-11-13 10:16] VITALS: BP 121/68
[2018-11-13 16:43] VITALS: BP 117/80
[2018-11-13 17:35] LABS: GLUCOMETER DEV NAME(LOC) 3E.I; GLUCOSE,POINT OF CARE 110 MG/DL (70-110)
[2018-11-13] MEDS: ATORVASTATIN CALCIUM 10 MG TABLET PO SCH (20:28)
[2018-11-14 03:37] VITALS: BP 115/94
[2018-11-14 05:32] LABS: GLUCOMETER DEV NAME(LOC) 3E.I; GLUCOSE,POINT OF CARE 93 MG/DL (70-110)
[2018-11-14] MEDS: MetFORMIN HCL 500 MG TABLET PO SCH ×2 (06:50→17:01)
[2018-11-14 08:00] VITALS: BP 128/90
[2018-11-14] MEDS: BuPROPion HCL XL 150 MG ER TABLET PO SCH (09:40)
[2018-11-14] MEDS: PANTOPRAZOLE SODIUM 40 MG DR TABLET PO SCH (09:40)
[2018-11-14] MEDS: ASPIRIN 81 MG CHEWABLE TABLET PO SCH (09:40)
[2018-11-14] MEDS: OLANZapine 7.5 MG TABLET PO SCH ×2 (09:41→20:22)
[2018-11-14] MEDS: DOCUSATE SODIUM 250 MG CAPSULE PO SCH ×2 (09:41→16:17)
[2018-11-14] MEDS: DIVALPROEX SODIUM 500 MG DR TABLET PO SCH ×2 (09:42→20:22)
[2018-11-14] MEDS: NYSTATIN 30 GM OINTMENT TP SCH ×2 (09:49→16:15)
[2018-11-14] MEDS: DOCUSATE SODIUM 100 MG CAPSULE PO PRN (16:16)
[2018-11-14 17:04] VITALS: BP 105/85
[2018-11-14] MEDS: ATORVASTATIN CALCIUM 10 MG TABLET PO SCH (20:22)
[2018-11-14] MEDS: ZOLPIDEM TARTRATE 10 MG TABLET PO PRN (20:23)
[2018-11-15 06:31] LABS: GLUCOMETER DEV NAME(LOC) 3E.I; GLUCOSE,POINT OF CARE 74 MG/DL (70-110)
[2018-11-15] MEDS: MetFORMIN HCL 500 MG TABLET PO SCH ×2 (06:49→18:53)
[2018-11-15] MEDS: PANTOPRAZOLE SODIUM 40 MG DR TABLET PO SCH (08:49)
[2018-11-15] MEDS: DOCUSATE SODIUM 250 MG CAPSULE PO SCH ×2 (08:49→18:52)
[2018-11-15] MEDS: BuPROPion HCL XL 150 MG ER TABLET PO SCH (08:49)
[2018-11-15] MEDS: OLANZapine 7.5 MG TABLET PO SCH ×2 (08:49→20:20)
[2018-11-15] MEDS: ASPIRIN 81 MG CHEWABLE TABLET PO SCH (08:49)
[2018-11-15] MEDS: NYSTATIN 30 GM OINTMENT TP SCH ×2 (08:49→18:53)
[2018-11-15] MEDS: DIVALPROEX SODIUM 500 MG DR TABLET PO SCH ×2 (08:49→20:20)
[2018-11-15 09:46] VITALS: BP 105/69
[2018-11-15 16:38] VITALS: BP 148/82
[2018-11-15 16:51] LABS: GLUCOMETER DEV NAME(LOC) 3E.I; GLUCOSE,POINT OF CARE 95 MG/DL (70-110)
[2018-11-15] MEDS: ATORVASTATIN CALCIUM 10 MG TABLET PO SCH (20:20)
[2018-11-16 06:20] LABS: GLUCOMETER DEV NAME(LOC) 3E.I; GLUCOSE,POINT OF CARE 89 MG/DL (70-110)
[2018-11-16] MEDS: MetFORMIN HCL 500 MG TABLET PO SCH ×2 (06:48→17:33)
[2018-11-16] MEDS: ASPIRIN 81 MG CHEWABLE TABLET PO SCH (09:00)
[2018-11-16] MEDS: DIVALPROEX SODIUM 500 MG DR TABLET PO SCH ×2 (09:01→20:13)
[2018-11-16] MEDS: BuPROPion HCL XL 150 MG ER TABLET PO SCH (09:01)
[2018-11-16] MEDS: PANTOPRAZOLE SODIUM 40 MG DR TABLET PO SCH (09:01)
[2018-11-16] MEDS: OLANZapine 7.5 MG TABLET PO SCH ×2 (09:01→20:13)
[2018-11-16] MEDS: DOCUSATE SODIUM 250 MG CAPSULE PO SCH ×2 (09:01→17:05)
[2018-11-16] MEDS: NYSTATIN 30 GM OINTMENT TP SCH ×2 (09:02→17:06)
[2018-11-16 10:04] VITALS: BP 103/78
[2018-11-16 17:07] VITALS: BP 133/71
[2018-11-16 17:20] LABS: GLUCOMETER DEV NAME(LOC) 3E.I; GLUCOSE,POINT OF CARE 142 MG/DL (70-110)
[2018-11-16] MEDS: ATORVASTATIN CALCIUM 10 MG TABLET PO SCH (20:13)
[2018-11-17 05:25] LABS: GLUCOMETER DEV NAME(LOC) 3E.I; GLUCOSE,POINT OF CARE 116 MG/DL (70-110)
[2018-11-17] MEDS: MetFORMIN HCL 500 MG TABLET PO SCH ×2 (06:35→16:42)
[2018-11-17] MEDS: BuPROPion HCL XL 150 MG ER TABLET PO SCH (09:07)
[2018-11-17] MEDS: OLANZapine 7.5 MG TABLET PO SCH ×2 (09:07→20:16)
[2018-11-17] MEDS: PANTOPRAZOLE SODIUM 40 MG DR TABLET PO SCH (09:07)
[2018-11-17] MEDS: DIVALPROEX SODIUM 500 MG DR TABLET PO SCH ×2 (09:07→20:17)
[2018-11-17] MEDS: DOCUSATE SODIUM 250 MG CAPSULE PO SCH ×2 (09:07→16:42)
[2018-11-17] MEDS: ASPIRIN 81 MG CHEWABLE TABLET PO SCH (09:07)
[2018-11-17] MEDS: NYSTATIN 30 GM OINTMENT TP SCH ×2 (11:14→16:43)
[2018-11-17 12:43] VITALS: BP 102/72
[2018-11-17 17:46] LABS: GLUCOMETER DEV NAME(LOC) 3E.I; GLUCOSE,POINT OF CARE 90 MG/DL (70-110)
[2018-11-17 18:47] VITALS: BP 107/72
[2018-11-17] MEDS: ATORVASTATIN CALCIUM 10 MG TABLET PO SCH (20:16)
[2018-11-18 06:25] LABS: GLUCOMETER DEV NAME(LOC) 3E.I; GLUCOSE,POINT OF CARE 102 MG/DL (70-110)
[2018-11-18] MEDS: MetFORMIN HCL 500 MG TABLET PO SCH ×2 (06:52→17:14)
[2018-11-18] MEDS: BuPROPion HCL XL 150 MG ER TABLET PO SCH (10:20)
[2018-11-18] MEDS: DOCUSATE SODIUM 250 MG CAPSULE PO SCH ×2 (10:20→17:13)
[2018-11-18] MEDS: PANTOPRAZOLE SODIUM 40 MG DR TABLET PO SCH (10:20)
[2018-11-18] MEDS: NYSTATIN 30 GM OINTMENT TP SCH ×2 (10:20→17:30)
[2018-11-18] MEDS: OLANZapine 7.5 MG TABLET PO SCH ×2 (10:20→20:15)
[2018-11-18] MEDS: ASPIRIN 81 MG CHEWABLE TABLET PO SCH (10:21)
[2018-11-18] MEDS: DIVALPROEX SODIUM 500 MG DR TABLET PO SCH ×2 (10:21→20:15)
[2018-11-18 14:58] VITALS: BP 86/60
[2018-11-18 16:40] LABS: GLUCOMETER DEV NAME(LOC) 3E.I; GLUCOSE,POINT OF CARE 152 MG/DL (70-110)
[2018-11-18 16:46] VITALS: BP 112/79
[2018-11-18] MEDS: ATORVASTATIN CALCIUM 10 MG TABLET PO SCH (20:15)
[2018-11-19] MEDS: MetFORMIN HCL 500 MG TABLET PO SCH ×2 (07:03→16:22)
[2018-11-19 08:53] VITALS: BP 99/54
[2018-11-19] MEDS: NYSTATIN 30 GM OINTMENT TP SCH ×2 (09:45→16:14)
[2018-11-19] MEDS: BuPROPion HCL XL 150 MG ER TABLET PO SCH (09:46)
[2018-11-19] MEDS: OLANZapine 7.5 MG TABLET PO SCH ×2 (09:46→20:14)
[2018-11-19] MEDS: PANTOPRAZOLE SODIUM 40 MG DR TABLET PO SCH (09:46)
[2018-11-19] MEDS: DIVALPROEX SODIUM 500 MG DR TABLET PO SCH ×2 (09:46→20:14)
[2018-11-19] MEDS: ASPIRIN 81 MG CHEWABLE TABLET PO SCH (09:47)
[2018-11-19] MEDS: DOCUSATE SODIUM 250 MG CAPSULE PO SCH ×2 (09:48→16:22)
[2018-11-19 12:06] LABS: GLUCOMETER DEV NAME(LOC) 3E.I; GLUCOSE,POINT OF CARE 120 MG/DL (70-110)
[2018-11-19 16:56] LABS: GLUCOMETER DEV NAME(LOC) 3E.I; GLUCOSE,POINT OF CARE 86 MG/DL (70-110)
[2018-11-19 17:07] VITALS: BP 101/58
[2018-11-19] MEDS: ATORVASTATIN CALCIUM 10 MG TABLET PO SCH (20:14)
[2018-11-20 06:21] LABS: GLUCOMETER DEV NAME(LOC) 3E.I; GLUCOSE,POINT OF CARE 92 MG/DL (70-110)
[2018-11-20] MEDS: MetFORMIN HCL 500 MG TABLET PO SCH ×2 (06:53→16:07)
[2018-11-20] MEDS: BuPROPion HCL XL 150 MG ER TABLET PO SCH (09:05)
[2018-11-20] MEDS: DOCUSATE SODIUM 250 MG CAPSULE PO SCH ×2 (09:05→16:07)
[2018-11-20] MEDS: OLANZapine 7.5 MG TABLET PO SCH ×2 (09:05→20:14)
[2018-11-20] MEDS: DIVALPROEX SODIUM 500 MG DR TABLET PO SCH ×2 (09:05→20:13)
[2018-11-20] MEDS: ASPIRIN 81 MG CHEWABLE TABLET PO SCH (09:05)
[2018-11-20] MEDS: PANTOPRAZOLE SODIUM 40 MG DR TABLET PO SCH (09:05)
[2018-11-20 09:22] VITALS: BP 118/88
[2018-11-20] MEDS: NYSTATIN 30 GM OINTMENT TP SCH ×2 (13:22→16:08)
[2018-11-20 16:16] LABS: GLUCOMETER DEV NAME(LOC) 3E.I; GLUCOSE,POINT OF CARE 174 MG/DL (70-110)
[2018-11-20 17:27] VITALS: BP 110/66
[2018-11-20] MEDS: ATORVASTATIN CALCIUM 10 MG TABLET PO SCH (20:13)
[2018-11-21] MEDS: MetFORMIN HCL 500 MG TABLET PO SCH ×2 (07:12→17:44)
[2018-11-21 08:45] VITALS: BP 100/70
[2018-11-21] MEDS: BuPROPion HCL XL 150 MG ER TABLET PO SCH (09:57)
[2018-11-21] MEDS: DIVALPROEX SODIUM 500 MG DR TABLET PO SCH ×2 (09:57→20:30)
[2018-11-21] MEDS: ASPIRIN 81 MG CHEWABLE TABLET PO SCH (09:57)
[2018-11-21] MEDS: PANTOPRAZOLE SODIUM 40 MG DR TABLET PO SCH (09:57)
[2018-11-21] MEDS: OLANZapine 7.5 MG TABLET PO SCH ×2 (09:58→20:30)
[2018-11-21] MEDS: NYSTATIN 30 GM OINTMENT TP SCH ×2 (09:58→16:10)
[2018-11-21] MEDS: DOCUSATE SODIUM 250 MG CAPSULE PO SCH ×2 (10:00→16:08)
[2018-11-21 16:20] LABS: GLUCOMETER DEV NAME(LOC) 3E.I; GLUCOSE,POINT OF CARE 128 MG/DL (70-110)
[2018-11-21] MEDS: ATORVASTATIN CALCIUM 10 MG TABLET PO SCH (20:30)
[2018-11-22 01:05] VITALS: BP 107/71
[2018-11-22 05:30] LABS: GLUCOMETER DEV NAME(LOC) 3E.I; GLUCOSE,POINT OF CARE 180 MG/DL (70-110)
[2018-11-22] MEDS: MetFORMIN HCL 500 MG TABLET PO SCH ×2 (06:42→17:10)
[2018-11-22] MEDS: DIVALPROEX SODIUM 500 MG DR TABLET PO SCH ×2 (10:05→20:43)
[2018-11-22] MEDS: OLANZapine 7.5 MG TABLET PO SCH ×2 (10:05→20:44)
[2018-11-22] MEDS: ASPIRIN 81 MG CHEWABLE TABLET PO SCH (10:06)
[2018-11-22] MEDS: DOCUSATE SODIUM 250 MG CAPSULE PO SCH ×2 (10:06→17:09)
[2018-11-22] MEDS: PANTOPRAZOLE SODIUM 40 MG DR TABLET PO SCH (10:06)
[2018-11-22] MEDS: NYSTATIN 30 GM OINTMENT TP SCH ×2 (10:07→17:09)
[2018-11-22] MEDS: BuPROPion HCL XL 150 MG ER TABLET PO SCH (10:07)
[2018-11-22 16:32] VITALS: BP 121/75
[2018-11-22 17:05] LABS: GLUCOMETER DEV NAME(LOC) 3E.I; GLUCOSE,POINT OF CARE 149 MG/DL (70-110)
[2018-11-22] MEDS: ATORVASTATIN CALCIUM 10 MG TABLET PO SCH (20:43)
[2018-11-23 05:46] LABS: GLUCOMETER DEV NAME(LOC) 3E.I; GLUCOSE,POINT OF CARE 149 MG/DL (70-110)
[2018-11-23] MEDS: MetFORMIN HCL 500 MG TABLET PO SCH ×2 (06:46→16:56)
[2018-11-23 08:00] VITALS: BP 120/61
[2018-11-23] MEDS: ASPIRIN 81 MG CHEWABLE TABLET PO SCH (09:48)
[2018-11-23] MEDS: PANTOPRAZOLE SODIUM 40 MG DR TABLET PO SCH (09:48)
[2018-11-23] MEDS: BuPROPion HCL XL 150 MG ER TABLET PO SCH (09:48)
[2018-11-23] MEDS: DOCUSATE SODIUM 250 MG CAPSULE PO SCH ×2 (09:48→16:57)
[2018-11-23] MEDS: OLANZapine 7.5 MG TABLET PO SCH (09:49)
[2018-11-23] MEDS: DIVALPROEX SODIUM 500 MG DR TABLET PO SCH ×2 (09:49→16:56)
[2018-11-23] MEDS: NYSTATIN 30 GM OINTMENT TP SCH ×2 (13:05→16:57)
[2018-11-23] MEDS: OLANZapine 10 MG TABLET PO SCH (16:56)
[2018-11-23 17:06] VITALS: BP 92/61
[2018-11-23 17:35] LABS: GLUCOMETER DEV NAME(LOC) 3E.I; GLUCOSE,POINT OF CARE 125 MG/DL (70-110)
[2018-11-23] MEDS: ATORVASTATIN CALCIUM 10 MG TABLET PO SCH (20:10)
[2018-11-24 05:40] LABS: GLUCOMETER DEV NAME(LOC) 3E.I; GLUCOSE,POINT OF CARE 121 MG/DL (70-110)
[2018-11-24] MEDS: MetFORMIN HCL 500 MG TABLET PO SCH ×2 (06:37→16:17)
[2018-11-24 08:00] VITALS: BP 114/70
[2018-11-24] MEDS: ASPIRIN 81 MG CHEWABLE TABLET PO SCH (08:24)
[2018-11-24] MEDS: OLANZapine 10 MG TABLET PO SCH (08:24)
[2018-11-24] MEDS: BuPROPion HCL XL 150 MG ER TABLET PO SCH (08:24)
[2018-11-24] MEDS: PANTOPRAZOLE SODIUM 40 MG DR TABLET PO SCH (08:24)
[2018-11-24] MEDS: DOCUSATE SODIUM 250 MG CAPSULE PO SCH ×2 (08:24→16:16)
[2018-11-24] MEDS: DIVALPROEX SODIUM 500 MG DR TABLET PO SCH ×2 (08:24→16:17)
[2018-11-24] MEDS: NYSTATIN 30 GM OINTMENT TP SCH ×2 (11:19→16:19)
[2018-11-24] MEDS: OLANZapine 5 MG TABLET PO SCH (16:16)
[2018-11-24 17:06] LABS: GLUCOMETER DEV NAME(LOC) 3E.I; GLUCOSE,POINT OF CARE 159 MG/DL (70-110)
[2018-11-24 19:04] VITALS: BP 121/72
[2018-11-24] MEDS: CloZAPine 25 MG TABLET PO SCH (20:16)
[2018-11-24] MEDS: ATORVASTATIN CALCIUM 10 MG TABLET PO SCH (20:16)
[2018-11-25] MEDS: HALOPERIDOL 5 MG TABLET PO PRN ×2 (01:38→22:07)
[2018-11-25 01:45] VITALS: BP 113/87
[2018-11-25 06:06] LABS: BASOPHILS % (AUTO) 0.4 % (0.0-2.0); EOSINOPHILS % (AUTO) 4.7 % (1.0-6.0); HEMATOCRIT 39.1 % (41-53); HEMOGLOBIN 13.4 g/dL (13.5-17.5); LYMPHOCYTES # (AUTO) 2.4 K/uL (1.0-4.8); LYMPHOCYTES % (AUTO) 28.2 % (22.0-44.0); MEAN CORPUSCULAR HGB CONC 34.2 G/dL (31.0-37.0); MEAN CORPUSCULAR VOLUME 96 fL (80-100); MONOCYTES # (AUTO) 1.2 K/uL (0.1-1.0); MONOCYTES % (AUTO) 13.4 % (2.0-9.0); NEUTROPHILS # (AUTO) 4.6 K/uL (1.8-7.7); NEUTROPHILS % (AUTO) 53.3 % (40.0-70.0); PLATELET COUNT (AUTO) 186 K/uL (150-450); RED BLOOD CELL COUNT(AUTO) 4.05 MIL/uL (4.50-5.90); RED CELL DISTRIBUTION WIDTH 14.5 % (11.5-14.5)
[2018-11-25 06:17] LABS: GLUCOMETER DEV NAME(LOC) 3E.I; GLUCOSE,POINT OF CARE 110 MG/DL (70-110)
[2018-11-25] MEDS: MetFORMIN HCL 500 MG TABLET PO SCH ×2 (06:46→17:26)
[2018-11-25] MEDS: OLANZapine 5 MG TABLET PO SCH ×2 (09:10→17:17)
[2018-11-25] MEDS: ASPIRIN 81 MG CHEWABLE TABLET PO SCH (09:10)
[2018-11-25] MEDS: NYSTATIN 30 GM OINTMENT TP SCH ×2 (09:10→17:19)
[2018-11-25] MEDS: BuPROPion HCL XL 150 MG ER TABLET PO SCH (09:10)
[2018-11-25] MEDS: PANTOPRAZOLE SODIUM 40 MG DR TABLET PO SCH (09:10)
[2018-11-25] MEDS: DIVALPROEX SODIUM 500 MG DR TABLET PO SCH ×2 (09:10→17:17)
[2018-11-25] MEDS: DOCUSATE SODIUM 250 MG CAPSULE PO SCH ×2 (09:19→17:23)
[2018-11-25 09:29] VITALS: BP 114/75
[2018-11-25] MEDS: IBUPROFEN 400 MG TABLET PO PRN (10:16)
[2018-11-25 16:35] VITALS: BP 100/55
[2018-11-25] MEDS: DOCUSATE SODIUM 100 MG CAPSULE PO PRN (17:17)
[2018-11-25 17:31] LABS: GLUCOMETER DEV NAME(LOC) 3E.I; GLUCOSE,POINT OF CARE 175 MG/DL (70-110)
[2018-11-25] MEDS: ATORVASTATIN CALCIUM 10 MG TABLET PO SCH (20:24)
[2018-11-25] MEDS: CloZAPine 25 MG TABLET PO SCH (20:24)
[2018-11-26] MEDS: MetFORMIN HCL 500 MG TABLET PO SCH ×2 (06:53→17:22)
[2018-11-26] MEDS: PANTOPRAZOLE SODIUM 40 MG DR TABLET PO SCH (08:20)
[2018-11-26] MEDS: BuPROPion HCL XL 150 MG ER TABLET PO SCH (08:20)
[2018-11-26] MEDS: OLANZapine 5 MG TABLET PO SCH (08:20)
[2018-11-26] MEDS: DOCUSATE SODIUM 250 MG CAPSULE PO SCH ×2 (08:20→16:07)
[2018-11-26] MEDS: DIVALPROEX SODIUM 500 MG DR TABLET PO SCH ×2 (08:20→16:08)
[2018-11-26] MEDS: NYSTATIN 30 GM OINTMENT TP SCH ×2 (08:21→16:09)
[2018-11-26] MEDS: ASPIRIN 81 MG CHEWABLE TABLET PO SCH (08:21)
[2018-11-26 09:00] VITALS: BP 106/67
[2018-11-26 15:45] LABS: GLUCOMETER DEV NAME(LOC) 3E.I; GLUCOSE,POINT OF CARE 121 MG/DL (70-110)
[2018-11-26] MEDS: HALOPERIDOL 5 MG TABLET PO PRN (16:08)
[2018-11-26 16:15] LABS: GLUCOMETER DEV NAME(LOC) 3E.I; GLUCOSE,POINT OF CARE 190 MG/DL (70-110)
[2018-11-26 16:49] VITALS: BP 109/70
[2018-11-26] MEDS: ATORVASTATIN CALCIUM 10 MG TABLET PO SCH (19:59)
[2018-11-26] MEDS: IBUPROFEN 400 MG TABLET PO PRN (19:59)
[2018-11-26] MEDS: CloZAPine 25 MG TABLET PO SCH (19:59)
[2018-11-26 20:01] VITALS: BP 105/68
[2018-11-26] MEDS ORDERED: OLANZapine 5 MG TABLET PO SCH (21:00)
[2018-11-27] MEDS: MetFORMIN HCL 500 MG TABLET PO SCH ×2 (06:52→17:42)
[2018-11-27 08:37] VITALS: BP 133/74
[2018-11-27] MEDS: BuPROPion HCL XL 150 MG ER TABLET PO SCH (09:38)
[2018-11-27] MEDS: DIVALPROEX SODIUM 500 MG DR TABLET PO SCH ×2 (09:39→17:43)
[2018-11-27] MEDS: ASPIRIN 81 MG CHEWABLE TABLET PO SCH (09:39)
[2018-11-27] MEDS: DOCUSATE SODIUM 250 MG CAPSULE PO SCH ×2 (09:39→17:43)
[2018-11-27] MEDS: PANTOPRAZOLE SODIUM 40 MG DR TABLET PO SCH (09:39)
[2018-11-27 09:40] LABS: GLUCOMETER DEV NAME(LOC) 3E.I; GLUCOSE,POINT OF CARE 134 MG/DL (70-110)
[2018-11-27] MEDS: NYSTATIN 30 GM OINTMENT TP SCH ×2 (09:40→19:34)
[2018-11-27] MEDS: HALOPERIDOL 5 MG TABLET PO PRN (11:23)
[2018-11-27 18:12] VITALS: BP 114/81
[2018-11-27] MEDS: ATORVASTATIN CALCIUM 10 MG TABLET PO SCH (20:51)
[2018-11-27] MEDS: CloZAPine 25 MG TABLET PO SCH (20:52)
[2018-11-28] MEDS: MetFORMIN HCL 500 MG TABLET PO SCH ×2 (07:17→16:21)
[2018-11-28 08:54] VITALS: BP 122/94
[2018-11-28] MEDS: BuPROPion HCL XL 150 MG ER TABLET PO SCH (09:19)
[2018-11-28] MEDS: PANTOPRAZOLE SODIUM 40 MG DR TABLET PO SCH (09:19)
[2018-11-28] MEDS: DOCUSATE SODIUM 250 MG CAPSULE PO SCH ×2 (09:19→16:21)
[2018-11-28] MEDS: DIVALPROEX SODIUM 500 MG DR TABLET PO SCH ×2 (09:19→16:21)
[2018-11-28] MEDS: ASPIRIN 81 MG CHEWABLE TABLET PO SCH (09:19)
[2018-11-28] MEDS: NYSTATIN 30 GM OINTMENT TP SCH ×2 (09:19→16:21)
[2018-11-28 12:07] LABS: GLUCOMETER DEV NAME(LOC) 3E.I; GLUCOSE,POINT OF CARE 151 MG/DL (70-110)
[2018-11-28 12:40] LABS: GLUCOMETER DEV NAME(LOC) 3E.I; GLUCOSE,POINT OF CARE 121 MG/DL (70-110)
[2018-11-28 16:20] LABS: GLUCOMETER DEV NAME(LOC) 3E.I; GLUCOSE,POINT OF CARE 131 MG/DL (70-110)
[2018-11-28 16:34] VITALS: BP 108/76
[2018-11-28] MEDS: CloZAPine 25 MG TABLET PO SCH (20:23)
[2018-11-28] MEDS: ATORVASTATIN CALCIUM 10 MG TABLET PO SCH (20:23)
[2018-11-29 06:36] LABS: GLUCOMETER DEV NAME(LOC) 3E.I; GLUCOSE,POINT OF CARE 127 MG/DL (70-110)
[2018-11-29] MEDS: MetFORMIN HCL 500 MG TABLET PO SCH (06:55)
[2018-11-29] MEDS: NYSTATIN 30 GM OINTMENT TP SCH (08:47)
[2018-11-29] MEDS: DOCUSATE SODIUM 250 MG CAPSULE PO SCH (08:47)
[2018-11-29] MEDS: PANTOPRAZOLE SODIUM 40 MG DR TABLET PO SCH (08:47)
[2018-11-29] MEDS: ASPIRIN 81 MG CHEWABLE TABLET PO SCH (08:47)
[2018-11-29] MEDS: BuPROPion HCL XL 150 MG ER TABLET PO SCH (08:47)
[2018-11-29] MEDS: DIVALPROEX SODIUM 500 MG DR TABLET PO SCH (08:47)
[2018-11-29 13:11] VITALS: BP 128/75
[2018-11-29] MEDS ORDERED: DIVA-78 PO (13:24)
[2018-11-29] MEDS ORDERED: CLOZ25TA4 PO (13:24)
[2018-11-29] MEDS ORDERED: BUPR-93 PO (13:24)
== END 2018-11-29 16:00 | disposition home or self-care (01) | DRG 750 ==
LOC: EMS 12:53 → 3EI 19:00
PROVIDERS: ADMIT Psychiatry & Neurology Psychiatry; ATTEND Psychiatry & Neurology Psychiatry
DX: F20.9 Schizophrenia, unspecified (principal); R45.851 Suicidal ideations; Z94.0 Kidney transplant status; E11.9 Type 2 diabetes mellitus without complications; E78.00 Pure hypercholesterolemia, unspecified; E78.5 Hyperlipidemia, unspecified; F17.200 Nicotine dependence, unspecified, uncomplicated; Z71.6 Tobacco abuse counseling; F31.9 Bipolar disorder, unspecified; F94.0 Selective mutism; I10 Essential (primary) hypertension; K21.9 Gastro-esophageal reflux disease without esophagitis; K59.00 Constipation, unspecified; Z79.899 Other long term (current) drug therapy; F41.9 Anxiety disorder, unspecified
CPT/HCPCS: 70450; 83036; 84443; 87081; 93005; G0480

== ENCOUNTER 2018-12-05 20:04 | Inpatient (IN) | payer MEDICAID ==
[~2018-12-05] VITALS: Ht 185.4 cm; Wt 64.4 kg
[~2018-12-05 20:04] MED LIST changes: +ASPI81 PO; +ATOR10TA84 PO; +BUPR-93 PO; +CLOZ25TA4 PO; -NYST60PO TP; -OLAN10TA6 PO; -PANT40TA25 PO
[2018-12-05 21:30] LABS: BASOPHILS % (AUTO) 0.6 % (0.0-2.0); EOSINOPHILS % (AUTO) 6.1 % (1.0-6.0); HEMATOCRIT 43.9 % (41-53); HEMOGLOBIN 14.7 g/dL (13.5-17.5); LYMPHOCYTES # (AUTO) 2.4 K/uL (1.0-4.8); LYMPHOCYTES % (AUTO) 29.4 % (22.0-44.0); MEAN CORPUSCULAR HEMOGLOBIN 32.4 pg (26.0-34.0); MEAN CORPUSCULAR HGB CONC 33.5 G/dL (31.0-37.0); MEAN CORPUSCULAR VOLUME 97 fL (80-100); MONOCYTES # (AUTO) 0.7 K/uL (0.1-1.0); MONOCYTES % (AUTO) 8.6 % (2.0-9.0); NEUTROPHILS # (AUTO) 4.4 K/uL (1.8-7.7); NEUTROPHILS % (AUTO) 55.3 % (40.0-70.0); PLATELET COUNT (AUTO) 207 K/uL (150-450); RED BLOOD CELL COUNT(AUTO) 4.55 MIL/uL (4.50-5.90); RED CELL DISTRIBUTION WIDTH 14.6 % (11.5-14.5)
[2018-12-05 21:33] LABS: APPEARANCE,URINE CLEAR (CLEAR); BILIRUBIN,URINE NEGATIVE (NEGATIVE); GLUCOSE, URINE (UA) NEGATIVE (NEGATIVE); KETONES,URINE NEGATIVE (NEGATIVE); LEUKOCYTE ESTERASE ,URINE NEGATIVE (NEGATIVE); NITRATE,URINE NEGATIVE (NEGATIVE); OCCULT BLOOD,URINE NEGATIVE (NEGATIVE); PH,URINE 7.5 (5.0-8.0); PROTEIN,URINE NEGATIVE (NEGATIVE)
[2018-12-05 21:41] LABS: ANION GAP 5 mmol/L (8-16); CALCIUM, TOTAL 8.8 mg/dL (8.8-10.5); CARBON DIOXIDE 29 mmol/L (22-29); CHLORIDE 106 mmol/L (98-107); CREATININE 1.06 mg/dL (0.60-1.30); GLOMERULAR FILTR. RATE CALC > 60 mL/min (>60); GLUCOSE,RANDOM 138 mg/dL (70-110); POTASSIUM 4.1 mmol/L (3.5-5.1); SODIUM SERUM 140 mmol/L (136-145); UREA NITROGEN, BLOOD 13 mg/dL (7-18)
[2018-12-05 21:46] LABS: AMPHET/METH SCREEN,URINE NEGATIVE (NEGATIVE); BARBITURATE SCREEN, URINE NEGATIVE (NEGATIVE); BENZODIAZEPINES SCREEN,URINE NEGATIVE (NEGATIVE); CANNABINOID SCREEN,URINE NEGATIVE (NEGATIVE); COCAINE SCREEN,URINE NEGATIVE (NEGATIVE); METHADONE SCREEN, URINE NEGATIVE (NEGATIVE); OPIATE SCREEN,URINE NEGATIVE (NEGATIVE)
[2018-12-05 21:47] LABS: PHENCYCLIDINE SCREEN,URINE NEGATIVE (NEGATIVE)
[2018-12-05 21:58] LABS: ALANINE AMINOTRANSFERASE 14 U/L (12-78); ALBUMIN 3.2 g/dL (3.4-5.0); ALKALINE PHOSPHATASE 93 U/L (46-116); ASPARTATE AMINOTRANSFERASE 10 U/L (15-37); BILIRUBIN,TOTAL 0.2 mg/dL (0.1-1.0); FREE T4 (FREE THYROXINE) 1.11 ng/dL (0.76-1.46); THYROID STIMULATING HORMONE 1.55 uIU/mL (0.36-3.74); TOTAL PROTEIN, SERUM 6.4 g/dL (6.4-8.2); VALPROIC ACID 66 mcg/mL (50-100)
[2018-12-06] MEDS ORDERED: SODIUM CHLORIDE 0.9% 1,000 ML IV ONE (00:15)
[2018-12-06] MEDS ORDERED: ZOLPIDEM TARTRATE 10 MG TABLET PO PRN (00:30)
[2018-12-06 03:14] VITALS: BP 117/74
[2018-12-06] MEDS ORDERED: PNEUMOCOCCAL VACCINE POLYVALENT 0.5 ML VIAL [PPSV23] IM ONE (06:30)
[2018-12-06 08:35] VITALS: BP 120/79
[2018-12-06] MEDS ORDERED: INSULIN LISPRO 100 UNITS/ML SQ PRN (12:45)
[2018-12-06] MEDS ORDERED: GLUCAGON,HUMAN RECOMBINANT 1 MG VIAL IM PRN (12:45)
[2018-12-06] MEDS ORDERED: DEXTROSE 50%-WATER 25 GM/50 ML SYRINGE IVP PRN (12:45)
[2018-12-06] MEDS: DOCUSATE SODIUM 250 MG CAPSULE PO SCH (16:11)
[2018-12-06 16:16] LABS: GLUCOMETER DEV NAME(LOC) 3E.I; GLUCOSE,POINT OF CARE 135 MG/DL (70-110)
[2018-12-06 16:34] VITALS: BP 101/70
[2018-12-06] MEDS: MetFORMIN HCL 500 MG TABLET PO SCH (17:23)
[2018-12-06] MEDS: ATORVASTATIN CALCIUM 10 MG TABLET PO SCH (20:20)
[2018-12-06] MEDS: OLANZapine 5 MG RAPDIS TABLET PO PRN (20:20)
[2018-12-07] MEDS: INSULIN LISPRO 100 UNITS/ML SQ PRN (06:20)
[2018-12-07 06:26] LABS: GLUCOMETER DEV NAME(LOC) 3E.I; GLUCOSE,POINT OF CARE 148 MG/DL (70-110)
[2018-12-07] MEDS: MetFORMIN HCL 500 MG TABLET PO SCH ×2 (06:43→16:38)
[2018-12-07 08:09] LABS: CHOL/HDL RATIO 3.3 (4.2-7.3)
[2018-12-07] MEDS: ASPIRIN 81 MG CHEWABLE TABLET PO SCH (08:42)
[2018-12-07] MEDS: DIVALPROEX SODIUM 500 MG ER TABLET PO SCH ×2 (08:42→16:38)
[2018-12-07] MEDS: BuPROPion HCL XL 150 MG ER TABLET PO SCH (08:42)
[2018-12-07] MEDS: DOCUSATE SODIUM 250 MG CAPSULE PO SCH ×2 (08:42→16:38)
[2018-12-07 12:45] VITALS: BP 99/69
[2018-12-07 16:18] VITALS: BP 99/66
[2018-12-07 17:46] LABS: GLUCOMETER DEV NAME(LOC) 3E.I; GLUCOSE,POINT OF CARE 121 MG/DL (70-110)
[2018-12-07] MEDS: ATORVASTATIN CALCIUM 10 MG TABLET PO SCH (20:13)
[2018-12-07] MEDS ORDERED: CloZAPine 25 MG TABLET PO SCH (21:00)
[2018-12-08 05:32] LABS: GLUCOMETER DEV NAME(LOC) 3E.I; GLUCOSE,POINT OF CARE 123 MG/DL (70-110)
[2018-12-08] MEDS: MetFORMIN HCL 500 MG TABLET PO SCH ×2 (06:38→17:08)
[2018-12-08] MEDS: DOCUSATE SODIUM 250 MG CAPSULE PO SCH ×2 (08:50→17:08)
[2018-12-08] MEDS: DIVALPROEX SODIUM 500 MG ER TABLET PO SCH ×2 (08:50→20:28)
[2018-12-08] MEDS: ASPIRIN 81 MG CHEWABLE TABLET PO SCH (08:50)
[2018-12-08] MEDS: BuPROPion HCL XL 150 MG ER TABLET PO SCH (08:50)
[2018-12-08 09:40] VITALS: BP 102/73
[2018-12-08 16:51] VITALS: BP 107/67
[2018-12-08 17:40] LABS: GLUCOMETER DEV NAME(LOC) 3E.I; GLUCOSE,POINT OF CARE 93 MG/DL (70-110)
[2018-12-08] MEDS: ATORVASTATIN CALCIUM 10 MG TABLET PO SCH (20:27)
[2018-12-08] MEDS: CloZAPine 25 MG TABLET PO SCH (20:28)
[2018-12-09 05:21] LABS: GLUCOMETER DEV NAME(LOC) 3E.I; GLUCOSE,POINT OF CARE 113 MG/DL (70-110)
[2018-12-09] MEDS: MetFORMIN HCL 500 MG TABLET PO SCH ×2 (07:03→17:35)
[2018-12-09] MEDS: INSULIN LISPRO 100 UNITS/ML SQ PRN (07:06)
[2018-12-09] MEDS: DIVALPROEX SODIUM 250 MG ER TABLET PO SCH (08:30)
[2018-12-09] MEDS: ASPIRIN 81 MG CHEWABLE TABLET PO SCH (08:30)
[2018-12-09] MEDS: DOCUSATE SODIUM 250 MG CAPSULE PO SCH ×2 (08:30→17:35)
[2018-12-09] MEDS: BuPROPion HCL XL 150 MG ER TABLET PO SCH (08:30)
[2018-12-09 09:05] VITALS: BP 109/64
[2018-12-09 16:28] VITALS: BP 95/72
[2018-12-09 17:01] LABS: GLUCOMETER DEV NAME(LOC) 3E.I; GLUCOSE,POINT OF CARE 119 MG/DL (70-110)
[2018-12-09] MEDS: DIVALPROEX SODIUM 500 MG ER TABLET PO SCH (21:11)
[2018-12-09] MEDS: ATORVASTATIN CALCIUM 10 MG TABLET PO SCH (21:11)
[2018-12-09] MEDS: CloZAPine 25 MG TABLET PO SCH (21:11)
[2018-12-10 06:26] LABS: GLUCOMETER DEV NAME(LOC) 3E.I; GLUCOSE,POINT OF CARE 100 MG/DL (70-110)
[2018-12-10] MEDS: INSULIN LISPRO 100 UNITS/ML SQ PRN (06:39)
[2018-12-10] MEDS: MetFORMIN HCL 500 MG TABLET PO SCH ×2 (07:01→16:38)
[2018-12-10 08:00] VITALS: BP 109/92
[2018-12-10] MEDS: MULTIVITAMINS WITH MINERALS, THERAPEUTIC TABLET PO SCH (08:54)
[2018-12-10] MEDS: DOCUSATE SODIUM 250 MG CAPSULE PO SCH ×2 (08:54→16:38)
[2018-12-10] MEDS: BuPROPion HCL XL 150 MG ER TABLET PO SCH (08:55)
[2018-12-10] MEDS: ASPIRIN 81 MG CHEWABLE TABLET PO SCH (08:55)
[2018-12-10] MEDS: DIVALPROEX SODIUM 250 MG ER TABLET PO SCH (08:56)
[2018-12-10 17:10] VITALS: BP 109/80
[2018-12-10 17:11] LABS: GLUCOMETER DEV NAME(LOC) 3E.I; GLUCOSE,POINT OF CARE 137 MG/DL (70-110)
[2018-12-10] MEDS: CloZAPine 25 MG TABLET PO SCH (20:32)
[2018-12-10] MEDS: ATORVASTATIN CALCIUM 10 MG TABLET PO SCH (20:32)
[2018-12-10] MEDS: DIVALPROEX SODIUM 500 MG ER TABLET PO SCH (20:33)
[2018-12-11 05:34] VITALS: BP 98/63
[2018-12-11 05:36] LABS: GLUCOMETER DEV NAME(LOC) 3E.I; GLUCOSE,POINT OF CARE 119 MG/DL (70-110)
[2018-12-11] MEDS: INSULIN LISPRO 100 UNITS/ML SQ PRN ×2 (06:53→17:38)
[2018-12-11] MEDS: MetFORMIN HCL 500 MG TABLET PO SCH ×2 (06:53→16:33)
[2018-12-11] MEDS: DOCUSATE SODIUM 250 MG CAPSULE PO SCH ×2 (09:25→16:32)
[2018-12-11] MEDS: DIVALPROEX SODIUM 250 MG ER TABLET PO SCH (09:26)
[2018-12-11] MEDS: ASPIRIN 81 MG CHEWABLE TABLET PO SCH (09:26)
[2018-12-11] MEDS: BuPROPion HCL XL 150 MG ER TABLET PO SCH (09:26)
[2018-12-11] MEDS: MULTIVITAMINS WITH MINERALS, THERAPEUTIC TABLET PO SCH (09:26)
[2018-12-11 09:38] VITALS: BP 132/60
[2018-12-11 16:41] LABS: GLUCOMETER DEV NAME(LOC) 3E.I; GLUCOSE,POINT OF CARE 173 MG/DL (70-110)
[2018-12-11 18:08] VITALS: BP 102/71
[2018-12-11] MEDS: DIVALPROEX SODIUM 500 MG ER TABLET PO SCH (20:47)
[2018-12-11] MEDS: ATORVASTATIN CALCIUM 10 MG TABLET PO SCH (20:48)
[2018-12-11] MEDS: CloZAPine 100 MG TABLET PO SCH (20:48)
[2018-12-12 05:31] LABS: GLUCOMETER DEV NAME(LOC) 3E.I; GLUCOSE,POINT OF CARE 111 MG/DL (70-110)
[2018-12-12] MEDS: INSULIN LISPRO 100 UNITS/ML SQ PRN (06:48)
[2018-12-12] MEDS: MetFORMIN HCL 500 MG TABLET PO SCH ×2 (06:49→17:08)
[2018-12-12 07:10] LABS: BASOPHILS % (AUTO) 0.7 % (0.0-2.0); EOSINOPHILS % (AUTO) 8.3 % (1.0-6.0); HEMATOCRIT 40.7 % (41-53); HEMOGLOBIN 13.8 g/dL (13.5-17.5); LYMPHOCYTES # (AUTO) 2.1 K/uL (1.0-4.8); LYMPHOCYTES % (AUTO) 34.9 % (22.0-44.0); MEAN CORPUSCULAR HEMOGLOBIN 32.7 pg (26.0-34.0); MEAN CORPUSCULAR HGB CONC 34.1 G/dL (31.0-37.0); MEAN CORPUSCULAR VOLUME 96 fL (80-100); MONOCYTES # (AUTO) 0.6 K/uL (0.1-1.0); MONOCYTES % (AUTO) 10.8 % (2.0-9.0); NEUTROPHILS # (AUTO) 2.7 K/uL (1.8-7.7); NEUTROPHILS % (AUTO) 45.3 % (40.0-70.0); PLATELET COUNT (AUTO) 186 K/uL (150-450); RED BLOOD CELL COUNT(AUTO) 4.23 MIL/uL (4.50-5.90); RED CELL DISTRIBUTION WIDTH 14.3 % (11.5-14.5)
[2018-12-12] MEDS: DIVALPROEX SODIUM 250 MG ER TABLET PO SCH (09:07)
[2018-12-12] MEDS: DOCUSATE SODIUM 250 MG CAPSULE PO SCH ×2 (09:07→17:08)
[2018-12-12] MEDS: ASPIRIN 81 MG CHEWABLE TABLET PO SCH (09:07)
[2018-12-12] MEDS: MULTIVITAMINS WITH MINERALS, THERAPEUTIC TABLET PO SCH (09:07)
[2018-12-12] MEDS: BuPROPion HCL XL 150 MG ER TABLET PO SCH (09:07)
[2018-12-12 10:23] VITALS: BP 96/69
[2018-12-12 17:10] LABS: GLUCOMETER DEV NAME(LOC) 3E.I; GLUCOSE,POINT OF CARE 113 MG/DL (70-110)
[2018-12-12] MEDS: ATORVASTATIN CALCIUM 10 MG TABLET PO SCH (21:36)
[2018-12-12] MEDS: DIVALPROEX SODIUM 500 MG ER TABLET PO SCH (21:36)
[2018-12-12] MEDS: CloZAPine 100 MG TABLET PO SCH (21:37)
[2018-12-12 21:57] VITALS: BP 104/66
[2018-12-13 01:02] VITALS: BP 118/78
[2018-12-13 06:35] LABS: GLUCOMETER DEV NAME(LOC) 3E.I; GLUCOSE,POINT OF CARE 108 MG/DL (70-110)
[2018-12-13] MEDS: INSULIN LISPRO 100 UNITS/ML SQ PRN ×2 (06:36→17:20)
[2018-12-13] MEDS: MetFORMIN HCL 500 MG TABLET PO SCH ×2 (06:47→17:17)
[2018-12-13] MEDS: MULTIVITAMINS WITH MINERALS, THERAPEUTIC TABLET PO SCH (08:56)
[2018-12-13] MEDS: DIVALPROEX SODIUM 250 MG ER TABLET PO SCH ×2 (08:56→17:17)
[2018-12-13] MEDS: ASPIRIN 81 MG CHEWABLE TABLET PO SCH (08:57)
[2018-12-13] MEDS: BuPROPion HCL XL 150 MG ER TABLET PO SCH (08:57)
[2018-12-13] MEDS: DOCUSATE SODIUM 250 MG CAPSULE PO SCH ×2 (08:57→17:17)
[2018-12-13 10:31] VITALS: BP 121/58
[2018-12-13 17:00] VITALS: BP 99/67
[2018-12-13] MEDS: ATORVASTATIN CALCIUM 10 MG TABLET PO SCH (20:52)
[2018-12-13] MEDS: CloZAPine 100 MG TABLET PO SCH (20:52)
[2018-12-13] MEDS: TraZODone HCL 50 MG TABLET PO SCH (20:53)
[2018-12-14 05:31] LABS: GLUCOMETER DEV NAME(LOC) 3E.I; GLUCOSE,POINT OF CARE 101 MG/DL (70-110)
[2018-12-14] MEDS ORDERED: BUPIVACAINE HCL/PF 0.5% 30 ML VIAL ONE (06:01)
[2018-12-14] MEDS ORDERED: MUPIROCIN CALCIUM 2% 22 GM OINTMENT ONE (06:01)
[2018-12-14] MEDS ORDERED: VANCOMYCIN HCL 1 GM/VIAL ONE (06:01)
[2018-12-14] MEDS ORDERED: MICROFIBRILLAR COLLAGEN 1 GM PACKAGE TP ONE (06:01)
[2018-12-14] MEDS ORDERED: RINGERS SOLUTION,LACTATED 0 ML IV ONE (06:02)
[2018-12-14] MEDS ORDERED: SODIUM CHLORIDE 0.9% 10 ML ONE (06:02)
[2018-12-14] MEDS: MetFORMIN HCL 500 MG TABLET PO SCH ×2 (07:03→17:47)
[2018-12-14] MEDS: INSULIN LISPRO 100 UNITS/ML SQ PRN (07:05)
[2018-12-14 09:11] VITALS: BP 106/76
[2018-12-14] MEDS: BuPROPion HCL XL 150 MG ER TABLET PO SCH (09:15)
[2018-12-14] MEDS: ASPIRIN 81 MG CHEWABLE TABLET PO SCH (09:15)
[2018-12-14] MEDS: DIVALPROEX SODIUM 250 MG ER TABLET PO SCH (09:15)
[2018-12-14] MEDS: MULTIVITAMINS WITH MINERALS, THERAPEUTIC TABLET PO SCH (09:15)
[2018-12-14] MEDS: DOCUSATE SODIUM 250 MG CAPSULE PO SCH ×2 (09:15→17:47)
[2018-12-14 17:46] LABS: GLUCOMETER DEV NAME(LOC) 3E.I; GLUCOSE,POINT OF CARE 128 MG/DL (70-110)
[2018-12-14 18:07] VITALS: BP 90/59
[2018-12-14] MEDS: ATORVASTATIN CALCIUM 10 MG TABLET PO SCH (20:42)
[2018-12-14] MEDS: TraZODone HCL 50 MG TABLET PO SCH (20:42)
[2018-12-15 00:25] VITALS: BP 106/73
[2018-12-15 06:36] LABS: GLUCOMETER DEV NAME(LOC) 3E.I; GLUCOSE,POINT OF CARE 102 MG/DL (70-110)
[2018-12-15] MEDS: MetFORMIN HCL 500 MG TABLET PO SCH ×2 (06:54→17:36)
[2018-12-15] MEDS ORDERED: DIVALPROEX SODIUM 250 MG ER TABLET PO SCH (09:00)
[2018-12-15] MEDS: ASPIRIN 81 MG CHEWABLE TABLET PO SCH (09:10)
[2018-12-15] MEDS: DOCUSATE SODIUM 250 MG CAPSULE PO SCH ×2 (09:10→17:36)
[2018-12-15] MEDS: BuPROPion HCL XL 150 MG ER TABLET PO SCH (09:11)
[2018-12-15] MEDS: MULTIVITAMINS WITH MINERALS, THERAPEUTIC TABLET PO SCH (09:11)
[2018-12-15 16:32] VITALS: BP 99/65
[2018-12-15 17:30] LABS: GLUCOMETER DEV NAME(LOC) 3E.I; GLUCOSE,POINT OF CARE 135 MG/DL (70-110)
[2018-12-15] MEDS: TraZODone HCL 50 MG TABLET PO SCH (20:44)
[2018-12-15] MEDS: CloZAPine 100 MG TABLET PO SCH (20:47)
[2018-12-15] MEDS: ATORVASTATIN CALCIUM 10 MG TABLET PO SCH (20:49)
[2018-12-16 04:31] VITALS: BP_SYST 81; BP_SYST 96; BP_DIAS 54; BP_DIAS 67
[2018-12-16 05:41] LABS: GLUCOMETER DEV NAME(LOC) 3E.I; GLUCOSE,POINT OF CARE 103 MG/DL (70-110)
[2018-12-16] MEDS: MetFORMIN HCL 500 MG TABLET PO SCH ×2 (06:54→17:10)
[2018-12-16] MEDS: INSULIN LISPRO 100 UNITS/ML SQ PRN (06:57)
[2018-12-16 08:00] VITALS: BP 106/61
[2018-12-16] MEDS: BuPROPion HCL XL 150 MG ER TABLET PO SCH (08:34)
[2018-12-16] MEDS: DOCUSATE SODIUM 250 MG CAPSULE PO SCH ×2 (08:34→17:10)
[2018-12-16] MEDS: ASPIRIN 81 MG CHEWABLE TABLET PO SCH (08:34)
[2018-12-16] MEDS: MULTIVITAMINS WITH MINERALS, THERAPEUTIC TABLET PO SCH (08:34)
[2018-12-16 17:00] VITALS: BP 98/63
[2018-12-16 17:17] LABS: GLUCOMETER DEV NAME(LOC) 3E.I; GLUCOSE,POINT OF CARE 119 MG/DL (70-110)
[2018-12-16] MEDS: TraZODone HCL 50 MG TABLET PO SCH (20:36)
[2018-12-16] MEDS: ATORVASTATIN CALCIUM 10 MG TABLET PO SCH (20:36)
[2018-12-16] MEDS: CloZAPine 100 MG TABLET PO SCH (21:00)
[2018-12-16 21:56] VITALS: BP 92/60
[2018-12-17 05:35] LABS: GLUCOMETER DEV NAME(LOC) 3E.I; GLUCOSE,POINT OF CARE 106 MG/DL (70-110)
[2018-12-17] MEDS: MetFORMIN HCL 500 MG TABLET PO SCH ×2 (06:44→16:32)
[2018-12-17] MEDS: INSULIN LISPRO 100 UNITS/ML SQ PRN (06:45)
[2018-12-17 08:00] VITALS: BP 90/66
[2018-12-17] MEDS: ASPIRIN 81 MG CHEWABLE TABLET PO SCH (08:28)
[2018-12-17] MEDS: BuPROPion HCL XL 150 MG ER TABLET PO SCH (08:28)
[2018-12-17] MEDS: MULTIVITAMINS WITH MINERALS, THERAPEUTIC TABLET PO SCH (08:28)
[2018-12-17] MEDS: DOCUSATE SODIUM 250 MG CAPSULE PO SCH ×2 (08:28→16:31)
[2018-12-17 08:39] LABS: BASOPHILS % (AUTO) 0.5 % (0.0-2.0); EOSINOPHILS % (AUTO) 5.2 % (1.0-6.0); HEMATOCRIT 43.5 % (41-53); HEMOGLOBIN 14.5 g/dL (13.5-17.5); LYMPHOCYTES # (AUTO) 2.2 K/uL (1.0-4.8); LYMPHOCYTES % (AUTO) 35.5 % (22.0-44.0); MEAN CORPUSCULAR HEMOGLOBIN 32.5 pg (26.0-34.0); MEAN CORPUSCULAR HGB CONC 33.4 G/dL (31.0-37.0); MEAN CORPUSCULAR VOLUME 97 fL (80-100); MONOCYTES # (AUTO) 0.6 K/uL (0.1-1.0); NEUTROPHILS % (AUTO) 48.8 % (40.0-70.0); PLATELET COUNT (AUTO) 208 K/uL (150-450); RED BLOOD CELL COUNT(AUTO) 4.47 MIL/uL (4.50-5.90); RED CELL DISTRIBUTION WIDTH 14.4 % (11.5-14.5)
[2018-12-17 16:55] VITALS: BP 106/71
[2018-12-17 17:37] LABS: GLUCOMETER DEV NAME(LOC) 3E.I; GLUCOSE,POINT OF CARE 89 MG/DL (70-110)
[2018-12-17] MEDS: CloZAPine 100 MG TABLET PO SCH (20:24)
[2018-12-17] MEDS: TraZODone HCL 50 MG TABLET PO SCH (20:24)
[2018-12-17] MEDS: ATORVASTATIN CALCIUM 10 MG TABLET PO SCH (20:25)
[2018-12-18 06:02] LABS: GLUCOMETER DEV NAME(LOC) 3E.I; GLUCOSE,POINT OF CARE 92 MG/DL (70-110)
[2018-12-18] MEDS: MetFORMIN HCL 500 MG TABLET PO SCH ×2 (06:49→17:37)
[2018-12-18] MEDS: BuPROPion HCL XL 150 MG ER TABLET PO SCH (09:01)
[2018-12-18] MEDS: ASPIRIN 81 MG CHEWABLE TABLET PO SCH (09:01)
[2018-12-18] MEDS: DOCUSATE SODIUM 250 MG CAPSULE PO SCH ×2 (09:01→17:37)
[2018-12-18] MEDS: MULTIVITAMINS WITH MINERALS, THERAPEUTIC TABLET PO SCH (09:01)
[2018-12-18 10:18] VITALS: BP 87/63
[2018-12-18 10:45] VITALS: BP 97/71
[2018-12-18 17:16] LABS: GLUCOMETER DEV NAME(LOC) 3E.I; GLUCOSE,POINT OF CARE 116 MG/DL (70-110)
[2018-12-18 20:58] VITALS: BP_SYST 101; BP_SYST 11; BP_DIAS 69
[2018-12-18] MEDS: CloZAPine 100 MG TABLET PO SCH (21:09)
[2018-12-18] MEDS: ATORVASTATIN CALCIUM 10 MG TABLET PO SCH (21:09)
[2018-12-18] MEDS: TraZODone HCL 50 MG TABLET PO SCH (21:09)
[2018-12-19 05:24] VITALS: BP 91/64
[2018-12-19] MEDS: OLANZapine 5 MG RAPDIS TABLET PO PRN (05:31)
[2018-12-19] MEDS: LORazepam 2 MG TABLET PO PRN (05:31)
[2018-12-19 05:52] LABS: GLUCOMETER DEV NAME(LOC) 3EX.; GLUCOSE,POINT OF CARE 108 MG/DL (70-110)
[2018-12-19] MEDS: MetFORMIN HCL 500 MG TABLET PO SCH ×2 (06:50→16:42)
[2018-12-19] MEDS: BuPROPion HCL XL 150 MG ER TABLET PO SCH (08:17)
[2018-12-19] MEDS: DOCUSATE SODIUM 250 MG CAPSULE PO SCH ×2 (08:17→16:42)
[2018-12-19] MEDS: MULTIVITAMINS WITH MINERALS, THERAPEUTIC TABLET PO SCH (08:17)
[2018-12-19] MEDS: ASPIRIN 81 MG CHEWABLE TABLET PO SCH (08:18)
[2018-12-19 09:29] VITALS: BP 96/60
[2018-12-19 17:01] LABS: GLUCOMETER DEV NAME(LOC) 3E.I; GLUCOSE,POINT OF CARE 132 MG/DL (70-110)
[2018-12-19 17:06] VITALS: BP 96/70
[2018-12-19] MEDS: ATORVASTATIN CALCIUM 10 MG TABLET PO SCH (20:10)
[2018-12-19] MEDS: TraZODone HCL 50 MG TABLET PO SCH (20:10)
[2018-12-19] MEDS: CloZAPine 100 MG TABLET PO SCH (20:10)
[2018-12-20 05:37] LABS: GLUCOMETER DEV NAME(LOC) 3E.I; GLUCOSE,POINT OF CARE 82 MG/DL (70-110)
[2018-12-20] MEDS: MetFORMIN HCL 500 MG TABLET PO SCH ×2 (06:43→17:12)
[2018-12-20] MEDS: INSULIN LISPRO 100 UNITS/ML SQ PRN (06:44)
[2018-12-20] MEDS: MULTIVITAMINS WITH MINERALS, THERAPEUTIC TABLET PO SCH (09:32)
[2018-12-20] MEDS: BuPROPion HCL XL 150 MG ER TABLET PO SCH (09:32)
[2018-12-20] MEDS: ASPIRIN 81 MG CHEWABLE TABLET PO SCH (09:32)
[2018-12-20] MEDS: DOCUSATE SODIUM 250 MG CAPSULE PO SCH ×2 (09:32→17:11)
[2018-12-20 09:44] VITALS: BP 94/52
[2018-12-20 17:37] LABS: GLUCOMETER DEV NAME(LOC) 3E.I; GLUCOSE,POINT OF CARE 113 MG/DL (70-110)
[2018-12-20 19:18] VITALS: BP 99/56
[2018-12-20] MEDS: CloZAPine 100 MG TABLET PO SCH (21:01)
[2018-12-20] MEDS: TraZODone HCL 50 MG TABLET PO SCH (21:01)
[2018-12-20] MEDS: ATORVASTATIN CALCIUM 10 MG TABLET PO SCH (21:01)
[2018-12-21 05:34] LABS: GLUCOMETER DEV NAME(LOC) 3E.I; GLUCOSE,POINT OF CARE 95 MG/DL (70-110)
[2018-12-21] MEDS: MetFORMIN HCL 500 MG TABLET PO SCH ×2 (07:00→17:09)
[2018-12-21] MEDS: INSULIN LISPRO 100 UNITS/ML SQ PRN (07:04)
[2018-12-21 09:23] VITALS: BP 104/64
[2018-12-21] MEDS: MULTIVITAMINS WITH MINERALS, THERAPEUTIC TABLET PO SCH (10:15)
[2018-12-21] MEDS: BuPROPion HCL XL 150 MG ER TABLET PO SCH (10:15)
[2018-12-21] MEDS: ASPIRIN 81 MG CHEWABLE TABLET PO SCH (10:15)
[2018-12-21] MEDS: DOCUSATE SODIUM 250 MG CAPSULE PO SCH ×2 (10:16→17:05)
[2018-12-21 17:25] LABS: GLUCOMETER DEV NAME(LOC) 3E.I; GLUCOSE,POINT OF CARE 109 MG/DL (70-110)
[2018-12-21 19:06] VITALS: BP 99/72
[2018-12-21] MEDS: CloZAPine 100 MG TABLET PO SCH (21:12)
[2018-12-21] MEDS: ATORVASTATIN CALCIUM 10 MG TABLET PO SCH (21:12)
[2018-12-21] MEDS: TraZODone HCL 50 MG TABLET PO SCH (21:12)
[2018-12-21 23:40] VITALS: BP 119/71
[2018-12-21] MEDS: LORazepam 2 MG TABLET PO PRN (23:41)
[2018-12-22 05:46] LABS: GLUCOMETER DEV NAME(LOC) 3E.I; GLUCOSE,POINT OF CARE 124 MG/DL (70-110)
[2018-12-22 05:48] VITALS: BP 121/70
[2018-12-22] MEDS: INSULIN LISPRO 100 UNITS/ML SQ PRN (06:59)
[2018-12-22] MEDS: MetFORMIN HCL 500 MG TABLET PO SCH ×2 (06:59→16:49)
[2018-12-22] MEDS: DOCUSATE SODIUM 250 MG CAPSULE PO SCH ×2 (08:56→16:48)
[2018-12-22] MEDS: BuPROPion HCL XL 150 MG ER TABLET PO SCH (08:56)
[2018-12-22] MEDS: ASPIRIN 81 MG CHEWABLE TABLET PO SCH (08:56)
[2018-12-22] MEDS: MULTIVITAMINS WITH MINERALS, THERAPEUTIC TABLET PO SCH (08:56)
[2018-12-22 09:33] VITALS: BP 135/98
[2018-12-22 10:09] LABS: BASOPHILS % (AUTO) 0.4 % (0.0-2.0); EOSINOPHILS % (AUTO) 3.2 % (1.0-6.0); HEMATOCRIT 41.4 % (41-53); LYMPHOCYTES # (AUTO) 1.9 K/uL (1.0-4.8); LYMPHOCYTES % (AUTO) 28.2 % (22.0-44.0); MEAN CORPUSCULAR HEMOGLOBIN 32.4 pg (26.0-34.0); MEAN CORPUSCULAR HGB CONC 33.9 G/dL (31.0-37.0); MEAN CORPUSCULAR VOLUME 96 fL (80-100); MONOCYTES # (AUTO) 0.8 K/uL (0.1-1.0); MONOCYTES % (AUTO) 12.4 % (2.0-9.0); NEUTROPHILS # (AUTO) 3.7 K/uL (1.8-7.7); NEUTROPHILS % (AUTO) 55.8 % (40.0-70.0); PLATELET COUNT (AUTO) 198 K/uL (150-450); RED BLOOD CELL COUNT(AUTO) 4.33 MIL/uL (4.50-5.90); RED CELL DISTRIBUTION WIDTH 13.8 % (11.5-14.5)
[2018-12-22 16:37] VITALS: BP 99/71
[2018-12-22 17:45] LABS: GLUCOMETER DEV NAME(LOC) 3E.I; GLUCOSE,POINT OF CARE 120 MG/DL (70-110)
[2018-12-22] MEDS: CloZAPine 100 MG TABLET PO SCH (20:09)
[2018-12-22] MEDS: ATORVASTATIN CALCIUM 10 MG TABLET PO SCH (20:10)
[2018-12-22] MEDS: TraZODone HCL 50 MG TABLET PO SCH (20:10)
[2018-12-23 06:11] LABS: GLUCOMETER DEV NAME(LOC) 3E.I; GLUCOSE,POINT OF CARE 93 MG/DL (70-110)
[2018-12-23] MEDS: MetFORMIN HCL 500 MG TABLET PO SCH ×2 (07:02→17:30)
[2018-12-23 09:19] VITALS: BP 134/68
[2018-12-23] MEDS: BuPROPion HCL XL 150 MG ER TABLET PO SCH (09:56)
[2018-12-23] MEDS: ASPIRIN 81 MG CHEWABLE TABLET PO SCH (09:56)
[2018-12-23] MEDS: MULTIVITAMINS WITH MINERALS, THERAPEUTIC TABLET PO SCH (09:56)
[2018-12-23] MEDS: DOCUSATE SODIUM 250 MG CAPSULE PO SCH ×2 (09:58→17:30)
[2018-12-23 16:31] LABS: GLUCOMETER DEV NAME(LOC) 3E.I; GLUCOSE,POINT OF CARE 118 MG/DL (70-110)
[2018-12-23 20:01] VITALS: BP 112/77
[2018-12-23] MEDS: TraZODone HCL 50 MG TABLET PO SCH (20:33)
[2018-12-23] MEDS: ATORVASTATIN CALCIUM 10 MG TABLET PO SCH (20:33)
[2018-12-23] MEDS: CloZAPine 100 MG TABLET PO SCH (20:33)
[2018-12-24 06:31] LABS: GLUCOMETER DEV NAME(LOC) 3E.I; GLUCOSE,POINT OF CARE 88 MG/DL (70-110)
[2018-12-24] MEDS: INSULIN LISPRO 100 UNITS/ML SQ PRN (06:39)
[2018-12-24] MEDS: MetFORMIN HCL 500 MG TABLET PO SCH ×2 (06:55→17:25)
[2018-12-24] MEDS: BuPROPion HCL XL 150 MG ER TABLET PO SCH (09:09)
[2018-12-24] MEDS: MULTIVITAMINS WITH MINERALS, THERAPEUTIC TABLET PO SCH (09:10)
[2018-12-24] MEDS: DOCUSATE SODIUM 250 MG CAPSULE PO SCH ×2 (09:10→17:25)
[2018-12-24] MEDS: ASPIRIN 81 MG CHEWABLE TABLET PO SCH (09:10)
[2018-12-24 09:31] VITALS: BP 100/54
[2018-12-24 16:20] LABS: GLUCOMETER DEV NAME(LOC) 3E.I; GLUCOSE,POINT OF CARE 97 MG/DL (70-110)
[2018-12-24 20:01] VITALS: BP 101/70
[2018-12-24] MEDS: ATORVASTATIN CALCIUM 10 MG TABLET PO SCH (20:20)
[2018-12-24] MEDS: CloZAPine 100 MG TABLET PO SCH (20:20)
[2018-12-24] MEDS: TraZODone HCL 50 MG TABLET PO SCH (20:20)
[2018-12-25 05:41] LABS: GLUCOMETER DEV NAME(LOC) 3E.I; GLUCOSE,POINT OF CARE 93 MG/DL (70-110)
[2018-12-25] MEDS: MetFORMIN HCL 500 MG TABLET PO SCH ×2 (06:57→17:17)
[2018-12-25] MEDS: INSULIN LISPRO 100 UNITS/ML SQ PRN ×2 (06:57→16:43)
[2018-12-25 08:00] VITALS: BP 100/62
[2018-12-25] MEDS: BuPROPion HCL XL 150 MG ER TABLET PO SCH (08:18)
[2018-12-25] MEDS: MULTIVITAMINS WITH MINERALS, THERAPEUTIC TABLET PO SCH (08:18)
[2018-12-25] MEDS: DOCUSATE SODIUM 250 MG CAPSULE PO SCH ×2 (08:18→17:17)
[2018-12-25] MEDS: ASPIRIN 81 MG CHEWABLE TABLET PO SCH (08:19)
[2018-12-25 16:36] VITALS: BP 101/69
[2018-12-25 16:47] LABS: GLUCOMETER DEV NAME(LOC) 3E.I; GLUCOSE,POINT OF CARE 167 MG/DL (70-110)
[2018-12-25] MEDS: ATORVASTATIN CALCIUM 10 MG TABLET PO SCH (20:28)
[2018-12-25] MEDS: CloZAPine 100 MG TABLET PO SCH (20:29)
[2018-12-25] MEDS: TraZODone HCL 50 MG TABLET PO SCH (20:29)
[2018-12-26 05:36] LABS: GLUCOMETER DEV NAME(LOC) 3E.I; GLUCOSE,POINT OF CARE 100 MG/DL (70-110)
[2018-12-26] MEDS: MetFORMIN HCL 500 MG TABLET PO SCH ×2 (06:39→16:34)
[2018-12-26 10:07] VITALS: BP 92/58
[2018-12-26] MEDS: ASPIRIN 81 MG CHEWABLE TABLET PO SCH (10:21)
[2018-12-26] MEDS: MULTIVITAMINS WITH MINERALS, THERAPEUTIC TABLET PO SCH (10:21)
[2018-12-26] MEDS: DOCUSATE SODIUM 250 MG CAPSULE PO SCH ×2 (10:21→16:34)
[2018-12-26] MEDS: BuPROPion HCL XL 150 MG ER TABLET PO SCH (10:21)
[2018-12-26 17:06] VITALS: BP 93/71
[2018-12-26 17:21] LABS: GLUCOMETER DEV NAME(LOC) 3E.I; GLUCOSE,POINT OF CARE 109 MG/DL (70-110)
[2018-12-26] MEDS: ATORVASTATIN CALCIUM 10 MG TABLET PO SCH (20:35)
[2018-12-26] MEDS: CloZAPine 100 MG TABLET PO SCH (20:36)
[2018-12-26] MEDS: TraZODone HCL 50 MG TABLET PO SCH (20:36)
[2018-12-27] MEDS: MetFORMIN HCL 500 MG TABLET PO SCH ×2 (06:57→16:36)
[2018-12-27] MEDS: DOCUSATE SODIUM 250 MG CAPSULE PO SCH ×2 (08:44→16:35)
[2018-12-27] MEDS: BuPROPion HCL XL 150 MG ER TABLET PO SCH (08:44)
[2018-12-27] MEDS: ASPIRIN 81 MG CHEWABLE TABLET PO SCH (08:44)
[2018-12-27] MEDS: MULTIVITAMINS WITH MINERALS, THERAPEUTIC TABLET PO SCH (08:44)
[2018-12-27 08:56] VITALS: BP 94/48
[2018-12-27] MEDS ORDERED: MULT-1239 PO (15:04)
[2018-12-27] MEDS ORDERED: TRAZ-252 PO (15:05)
[2018-12-27 16:46] LABS: GLUCOMETER DEV NAME(LOC) 3E.I; GLUCOSE,POINT OF CARE 91 MG/DL (70-110)
[2018-12-27 16:46] LABS: GLUCOMETER DEV NAME(LOC) 3E.I; GLUCOSE,POINT OF CARE 128 MG/DL (70-110)
== END 2018-12-27 17:15 | disposition home or self-care (01) | DRG 750 ==
LOC: EMS 20:08 → 3EI 12-06 01:00
PROVIDERS: ADMIT Psychiatry & Neurology Psychiatry; ATTEND Psychiatry & Neurology Psychiatry
DX: F25.9 Schizoaffective disorder, unspecified (principal); Z94.0 Kidney transplant status; E11.9 Type 2 diabetes mellitus without complications; D72.819 Decreased white blood cell count, unspecified; E78.00 Pure hypercholesterolemia, unspecified; E78.5 Hyperlipidemia, unspecified; F17.210 Nicotine dependence, cigarettes, uncomplicated; F31.9 Bipolar disorder, unspecified; F94.0 Selective mutism; F41.9 Anxiety disorder, unspecified; G89.29 Other chronic pain; N28.9 Disorder of kidney and ureter, unspecified; M54.9 Dorsalgia, unspecified; I10 Essential (primary) hypertension; K59.00 Constipation, unspecified; M10.9 Gout, unspecified; Z79.899 Other long term (current) drug therapy; Z88.8 Allergy status to other drugs, medicaments and biological substances; Z91.040 Latex allergy status; Z79.82 Long term (current) use of aspirin
CPT/HCPCS: 51702; 70450; 84439; 84443; 87081; 93005; G0480; J3370; J3490; J7030; J7120

== ENCOUNTER 2019-03-19 15:06 | Emergency (ER) | payer MEDICAID ==
[~2019-03-19] VITALS: Ht 177.8 cm; Wt 63.6 kg
[~2019-03-19 15:06] MED LIST changes: -DIVA-78 PO; +DOCU-342 PO; -DOCU250C91 PO; +MULT-1239 PO; +TRAZ-252 PO
[2019-03-19 15:18] VITALS: BP 131/76
[2019-03-19] MEDS ORDERED: SENN-176 PO (15:22)
[2019-03-19] MEDS ORDERED: VALP250S23 PO (15:22)
[2019-03-19] MEDS ORDERED: METO25 PO (15:22)
[2019-03-19] MEDS ORDERED: QUET25TA PO (15:22)
[2019-03-19] MEDS ORDERED: ENOX30DI5 SQ (15:22)
== END 2019-03-19 15:40 | disposition home or self-care (01) ==
LOC: EMS 15:08
DX: R13.10 Dysphagia, unspecified (principal); E11.9 Type 2 diabetes mellitus without complications; E78.00 Pure hypercholesterolemia, unspecified; I10 Essential (primary) hypertension; G89.29 Other chronic pain; M54.9 Dorsalgia, unspecified; F41.9 Anxiety disorder, unspecified; F31.9 Bipolar disorder, unspecified; F20.9 Schizophrenia, unspecified; F17.210 Nicotine dependence, cigarettes, uncomplicated; Z98.890 Other specified postprocedural states; Z79.899 Other long term (current) drug therapy; Z79.82 Long term (current) use of aspirin; Z85.89 Personal history of malignant neoplasm of other organs and systems; Z88.8 Allergy status to other drugs, medicaments and biological substances; Z91.040 Latex allergy status

== ENCOUNTER 2019-05-26 12:31 | Emergency (ER) | payer MEDICAID ==
[~2019-05-26] VITALS: Ht 175.3 cm; Wt 70.9 kg
[~2019-05-26 12:31] MED LIST changes: +ASPI-728 PO; -ASPI81 PO; -CLOZ25TA4 PO; +ENOX30DI5 SQ; +SENN-176 PO; +VALP250S23 PO
[2019-05-26 14:48] LABS: BASOPHILS % (AUTO) 0.3 % (0.0-2.0); EOSINOPHILS % (AUTO) 1.3 % (1.0-6.0); HEMATOCRIT 41.7 % (41-53); HEMOGLOBIN 14.1 g/dL (13.5-17.5); LYMPHOCYTES # (AUTO) 1.6 K/uL (1.0-4.8); LYMPHOCYTES % (AUTO) 23.2 % (22.0-44.0); MEAN CORPUSCULAR HEMOGLOBIN 32.6 pg (26.0-34.0); MEAN CORPUSCULAR HGB CONC 33.8 G/dL (31.0-37.0); MEAN CORPUSCULAR VOLUME 96 fL (80-100); MONOCYTES # (AUTO) 0.9 K/uL (0.1-1.0); MONOCYTES % (AUTO) 13.3 % (2.0-9.0); NEUTROPHILS # (AUTO) 4.4 K/uL (1.8-7.7); NEUTROPHILS % (AUTO) 61.9 % (40.0-70.0); PLATELET COUNT (AUTO) 149 K/uL (150-450); RED BLOOD CELL COUNT(AUTO) 4.33 MIL/uL (4.50-5.90); RED CELL DISTRIBUTION WIDTH 14.6 % (11.5-14.5)
[2019-05-26 14:59] LABS: ANION GAP 5 mmol/L (8-16); CALCIUM, TOTAL 8.7 mg/dL (8.8-10.5); CARBON DIOXIDE 29 mmol/L (22-29); CHLORIDE 103 mmol/L (98-107); CREATININE 1.15 mg/dL (0.60-1.30); GLOMERULAR FILTR. RATE CALC > 60 mL/min (>60); GLUCOSE,RANDOM 102 mg/dL (70-110); POTASSIUM 3.9 mmol/L (3.5-5.1); SODIUM SERUM 137 mmol/L (136-145); UREA NITROGEN, BLOOD 12 mg/dL (7-18)
[2019-05-26 15:07] LABS: LACTIC ACID 1.7 mmol/L (0.4-2.0)
[2019-05-26 15:13] LABS: ALANINE AMINOTRANSFERASE 18 U/L (12-78); ALBUMIN 3.2 g/dL (3.4-5.0); ALKALINE PHOSPHATASE 79 U/L (46-116); ASPARTATE AMINOTRANSFERASE 12 U/L (15-37); BILIRUBIN,TOTAL 0.3 mg/dL (0.1-1.0); TOTAL PROTEIN, SERUM 6.5 g/dL (6.4-8.2); VALPROIC ACID 83 mcg/mL (50-100)
[2019-05-26 19:36] LABS: AMPHET/METH SCREEN,URINE NEGATIVE (NEGATIVE); BARBITURATE SCREEN, URINE NEGATIVE (NEGATIVE); BENZODIAZEPINES SCREEN,URINE NEGATIVE (NEGATIVE); CANNABINOID SCREEN,URINE NEGATIVE (NEGATIVE); COCAINE SCREEN,URINE NEGATIVE (NEGATIVE); METHADONE SCREEN, URINE NEGATIVE (NEGATIVE); OPIATE SCREEN,URINE NEGATIVE (NEGATIVE)
[2019-05-26 19:41] LABS: APPEARANCE,URINE CLEAR (CLEAR); BILIRUBIN,URINE NEGATIVE (NEGATIVE); GLUCOSE, URINE (UA) NEGATIVE (NEGATIVE); KETONES,URINE NEGATIVE (NEGATIVE); LEUKOCYTE ESTERASE ,URINE NEGATIVE (NEGATIVE); NITRATE,URINE NEGATIVE (NEGATIVE); OCCULT BLOOD,URINE NEGATIVE (NEGATIVE); PROTEIN,URINE NEGATIVE (NEGATIVE)
[2019-05-26 19:42] LABS: PHENCYCLIDINE SCREEN,URINE NEGATIVE (NEGATIVE)
[2019-05-26 20:29] VITALS: BP 123/74
== END 2019-05-26 20:37 | disposition home or self-care (01) ==
LOC: EMS 12:32
DX: R53.1 Weakness (principal); F41.9 Anxiety disorder, unspecified; F31.9 Bipolar disorder, unspecified; E11.9 Type 2 diabetes mellitus without complications; I10 Essential (primary) hypertension; E78.00 Pure hypercholesterolemia, unspecified; G89.29 Other chronic pain; F17.290 Nicotine dependence, other tobacco product, uncomplicated; Z88.8 Allergy status to other drugs, medicaments and biological substances; Z86.69 Personal history of other diseases of the nervous system and sense organs; Z91.040 Latex allergy status; Z79.82 Long term (current) use of aspirin; Z79.84 Long term (current) use of oral hypoglycemic drugs
CPT/HCPCS: 70450; 74021; 83605; 93005

== ENCOUNTER 2019-06-06 18:21 | Inpatient (IN) | payer MEDICAID ==
[~2019-06-06] VITALS: Ht 175.3 cm; Wt 69.0 kg
[2019-06-06] MEDS ORDERED: ASPIRIN 81 MG CHEWABLE TABLET PO ONE (18:45)
[2019-06-06 18:56] LABS: BASOPHILS % (AUTO) 0.4 % (0.0-2.0); EOSINOPHILS % (AUTO) 1.5 % (1.0-6.0); HEMATOCRIT 41.5 % (41-53); HEMOGLOBIN 14.3 g/dL (13.5-17.5); LYMPHOCYTES # (AUTO) 1.7 K/uL (1.0-4.8); LYMPHOCYTES % (AUTO) 23.1 % (22.0-44.0); MEAN CORPUSCULAR HEMOGLOBIN 33.1 pg (26.0-34.0); MEAN CORPUSCULAR HGB CONC 34.4 G/dL (31.0-37.0); MEAN CORPUSCULAR VOLUME 96 fL (80-100); MONOCYTES % (AUTO) 13.5 % (2.0-9.0); NEUTROPHILS # (AUTO) 4.5 K/uL (1.8-7.7); NEUTROPHILS % (AUTO) 61.5 % (40.0-70.0); PLATELET COUNT (AUTO) 157 K/uL (150-450); RED BLOOD CELL COUNT(AUTO) 4.32 MIL/uL (4.50-5.90); RED CELL DISTRIBUTION WIDTH 14.6 % (11.5-14.5)
[2019-06-06 19:05] LABS: ANION GAP 5 mmol/L (8-16); CALCIUM, TOTAL 8.7 mg/dL (8.8-10.5); CARBON DIOXIDE 32 mmol/L (22-29); CHLORIDE 103 mmol/L (98-107); GLOMERULAR FILTR. RATE CALC > 60 mL/min (>60); GLUCOSE,RANDOM 161 mg/dL (70-110); POTASSIUM 4.1 mmol/L (3.5-5.1); SODIUM SERUM 140 mmol/L (136-145); UREA NITROGEN, BLOOD 12 mg/dL (7-18)
[2019-06-06 19:10] LABS: PROTHROMBIN TIME 10.6 SEC (9.4-11.6)
[2019-06-06 19:20] LABS: B-TYPE NATRIURETIC PEPTIDE 9 pg/mL (0-100)
[2019-06-06 19:31] LABS: ALANINE AMINOTRANSFERASE 18 U/L (12-78); ALBUMIN 3.4 g/dL (3.4-5.0); ALKALINE PHOSPHATASE 85 U/L (46-116); ASPARTATE AMINOTRANSFERASE 14 U/L (15-37); BILIRUBIN,TOTAL 0.4 mg/dL (0.1-1.0); CREATINE KINASE, TOTAL ONLY 158 U/L (39-308)
[2019-06-06 19:55] LABS: APPEARANCE,URINE CLEAR (CLEAR); GLUCOSE, URINE (UA) 250 mg/dL (NEGATIVE); KETONES,URINE TRACE mg/dL (NEGATIVE); LEUKOCYTE ESTERASE ,URINE NEGATIVE (NEGATIVE); NITRATE,URINE NEGATIVE (NEGATIVE); OCCULT BLOOD,URINE NEGATIVE (NEGATIVE); PH,URINE 5.5 (5.0-8.0); PROTEIN,URINE NEGATIVE (NEGATIVE)
[2019-06-06 19:57] LABS: BILIRUBIN,URINE PRELIM. POSITIVE (NEGATIVE)
[2019-06-06 20:04] LABS: BACTERIA,URINE None Seen /HPF (None Seen); RBC,URINE None Seen /HPF (0-2); SQUAMOUS EPITHELIAL CELL,UR Rare /LPF (None Seen); WBC,URINE None Seen /HPF (0-5)
[2019-06-06] MEDS ORDERED: ACETAMINOPHEN 325 MG TABLET PO PRN ×2 (21:15→23:00)
[2019-06-06] MEDS ORDERED: 0.9% SODIUM CHLORIDE 10 ML SYRINGE IVP PRN (21:15)
[2019-06-06] MEDS ORDERED: ONDANSETRON HCL 4 MG/2 ML VIAL IVP PRN ×2 (21:15→23:00)
[2019-06-06] MEDS ORDERED: NITROGLYCERIN 2% (1 GM=INCH) PACKET TP ONE (21:15)
[2019-06-06 21:35] LABS: GLUCOSE,POINT OF CARE 148 MG/DL (70-110)
[2019-06-06 22:01] VITALS: BP 112/80
[2019-06-06] MEDS ORDERED: MAGNESIUM HYDROXIDE SUSPENSION 30 ML UDCUP PO PRN (23:00)
[2019-06-06] MEDS ORDERED: MORPHINE SULFATE 2 MG/ML SYRINGE IVP PRN (23:00)
[2019-06-06] MEDS ORDERED: IPRATROPIUM BROMIDE 0.5 MG/2.5 ML NEB SOLUTION NEB PRN (23:00)
[2019-06-06] MEDS ORDERED: HYDROCODONE/ACETAMINOPHEN 5-325 MG TABLET PO PRN (23:00)
[2019-06-06] MEDS ORDERED: BISACODYL 10 MG RECTAL RECTAL SUPPOSITORY PR PRN (23:00)
[2019-06-06] MEDS ORDERED: ALBUTEROL SULFATE 2.5 MG/0.5 ML NEB SOLUTION NEB PRN (23:00)
[2019-06-06] MEDS ORDERED: ZOLPIDEM TARTRATE 5 MG TABLET PO PRN (23:00)
[2019-06-06] MEDS ORDERED: DEXTROSE 50%-WATER 25 GM/50 ML SYRINGE IVP PRN (23:45)
[2019-06-07] MEDS: INSULIN LISPRO 100 UNITS/ML SQ PRN ×3 (00:36→22:13)
[2019-06-07] MEDS: HEPARIN SODIUM,PORCINE 5,000 UNITS/ML VIAL SQ SCH ×3 (00:36→16:11)
[2019-06-07 04:49] VITALS: BP 93/84
[2019-06-07 05:43] LABS: GLUCOMETER DEV NAME(LOC) 5N.2; GLUCOSE,POINT OF CARE 178 MG/DL (70-110)
[2019-06-07 05:49] LABS: BASOPHILS % (AUTO) 0.3 % (0.0-2.0); EOSINOPHILS % (AUTO) 3.3 % (1.0-6.0); HEMOGLOBIN 13.7 g/dL (13.5-17.5); LYMPHOCYTES # (AUTO) 2.3 K/uL (1.0-4.8); LYMPHOCYTES % (AUTO) 34.2 % (22.0-44.0); MEAN CORPUSCULAR HEMOGLOBIN 33.4 pg (26.0-34.0); MEAN CORPUSCULAR HGB CONC 35.2 G/dL (31.0-37.0); MEAN CORPUSCULAR VOLUME 95 fL (80-100); MONOCYTES # (AUTO) 0.9 K/uL (0.1-1.0); MONOCYTES % (AUTO) 13.4 % (2.0-9.0); NEUTROPHILS # (AUTO) 3.3 K/uL (1.8-7.7); NEUTROPHILS % (AUTO) 48.8 % (40.0-70.0); PLATELET COUNT (AUTO) 148 K/uL (150-450); RED BLOOD CELL COUNT(AUTO) 4.11 MIL/uL (4.50-5.90); RED CELL DISTRIBUTION WIDTH 14.5 % (11.5-14.5)
[2019-06-07 05:58] LABS: ALANINE AMINOTRANSFERASE 13 U/L (12-78); ALBUMIN 2.8 g/dL (3.4-5.0); ALKALINE PHOSPHATASE 72 U/L (46-116); ANION GAP 6 mmol/L (8-16); ASPARTATE AMINOTRANSFERASE 12 U/L (15-37); BILIRUBIN,TOTAL 0.3 mg/dL (0.1-1.0); CALCIUM, TOTAL 8.3 mg/dL (8.8-10.5); CARBON DIOXIDE 30 mmol/L (22-29); CHLORIDE 102 mmol/L (98-107); CREATININE 0.88 mg/dL (0.60-1.30); GLOMERULAR FILTR. RATE CALC > 60 mL/min (>60); GLUCOSE,RANDOM 132 mg/dL (70-110); POTASSIUM 3.9 mmol/L (3.5-5.1); SODIUM SERUM 138 mmol/L (136-145); TOTAL PROTEIN, SERUM 5.9 g/dL (6.4-8.2); UREA NITROGEN, BLOOD 12 mg/dL (7-18)
[2019-06-07] MEDS ORDERED: -PHARMACY VACCINE NOTE- MISC ONE (06:15)
[2019-06-07 07:57] VITALS: BP 114/75
[2019-06-07] MEDS: DOCUSATE SODIUM 100 MG CAPSULE PO SCH ×2 (09:05→21:00)
[2019-06-07 11:19] VITALS: BP 102/66
[2019-06-07 11:40] LABS: GLUCOMETER DEV NAME(LOC) 5S.2A; GLUCOSE,POINT OF CARE 220 MG/DL (70-110)
[2019-06-07 11:43] LABS: GLUCOMETER DEV NAME(LOC) 5N.2; GLUCOSE,POINT OF CARE 123 MG/DL (70-110)
[2019-06-07 16:15] VITALS: BP 95/70
[2019-06-07 20:35] VITALS: BP 115/70
[2019-06-07 20:36] LABS: GLUCOMETER DEV NAME(LOC) 5S.2A; GLUCOSE,POINT OF CARE 136 MG/DL (70-110)
[2019-06-07 23:44] VITALS: BP 100/72
[2019-06-08 01:28] LABS: GLUCOMETER DEV NAME(LOC) 5N.2; GLUCOSE,POINT OF CARE 189 MG/DL (70-110)
[2019-06-08] MEDS: HEPARIN SODIUM,PORCINE 5,000 UNITS/ML VIAL SQ SCH ×3 (01:53→16:41)
[2019-06-08 04:53] VITALS: BP 103/69
[2019-06-08 07:00] VITALS: BP 103/60
[2019-06-08] MEDS: INSULIN LISPRO 100 UNITS/ML SQ PRN ×2 (07:01→11:58)
[2019-06-08] MEDS: DOCUSATE SODIUM 100 MG CAPSULE PO SCH (08:32)
[2019-06-08 11:04] LABS: GLUCOMETER DEV NAME(LOC) 5N.2; GLUCOSE,POINT OF CARE 198 MG/DL (70-110)
[2019-06-08 15:25] VITALS: BP 112/66
[2019-06-08 23:50] LABS: GLUCOMETER DEV NAME(LOC) 5S.2A; GLUCOSE,POINT OF CARE 213 MG/DL (70-110)
== END 2019-06-08 20:50 | disposition home or self-care (01) | DRG 203 ==
LOC: EMS 18:22 → 5S 21:08
PROVIDERS: ADMIT Hospitalist; ATTEND Hospitalist
DX: R07.89 Other chest pain (principal); F20.9 Schizophrenia, unspecified; D49.6 Neoplasm of unspecified behavior of brain; E11.9 Type 2 diabetes mellitus without complications; E78.5 Hyperlipidemia, unspecified; F41.9 Anxiety disorder, unspecified; F31.9 Bipolar disorder, unspecified; E78.00 Pure hypercholesterolemia, unspecified; I10 Essential (primary) hypertension; N28.9 Disorder of kidney and ureter, unspecified; M10.9 Gout, unspecified; M54.9 Dorsalgia, unspecified; Z94.0 Kidney transplant status; Z88.8 Allergy status to other drugs, medicaments and biological substances; Z91.040 Latex allergy status; Z98.890 Other specified postprocedural states; Z95.2 Presence of prosthetic heart valve
CPT/HCPCS: 93005; 93306; J1644

== ENCOUNTER 2020-07-31 21:44 | Inpatient (IN) | payer MEDICAID ==
[~2020-07-31] VITALS: Ht 180.3 cm; Wt 80.7 kg
[~2020-07-31 21:44] MED LIST changes: +ASPI-1450 PO; -ASPI-728 PO; -DOCU-342 PO; +DOCU-350 PO; -SENN-176 PO; +SENN-277 PO
[2020-08-01] MEDS ORDERED: SODIUM CHLORIDE 0.9% 1,000 ML IV ONE (01:00)
[2020-08-01] MEDS ORDERED: 0.9% SODIUM CHLORIDE 10 ML SYRINGE IVP PRN (01:00)
[2020-08-01 01:11] LABS: BASOPHILS % (AUTO) 0.1 % (0.0-2.0); EOSINOPHILS % (AUTO) 0.8 % (1.0-6.0); HEMATOCRIT 41.6 % (41-53); HEMOGLOBIN 14.1 g/dL (13.5-17.5); LYMPHOCYTES # (AUTO) 1.5 K/uL (1.0-4.8); LYMPHOCYTES % (AUTO) 14.4 % (22.0-44.0); MEAN CORPUSCULAR HEMOGLOBIN 31.9 pg (26.0-34.0); MEAN CORPUSCULAR HGB CONC 33.9 G/dL (31.0-37.0); MEAN CORPUSCULAR VOLUME 94 fL (80-100); MONOCYTES % (AUTO) 9.3 % (2.0-9.0); NEUTROPHILS # (AUTO) 7.9 K/uL (1.8-7.7); NEUTROPHILS % (AUTO) 75.4 % (40.0-70.0); PLATELET COUNT (AUTO) 191 K/uL (150-450); RED BLOOD CELL COUNT(AUTO) 4.42 MIL/uL (4.50-5.90); RED CELL DISTRIBUTION WIDTH 14.7 % (11.5-14.5)
[2020-08-01 01:14] LABS: ANION GAP 11 mmol/L (8-16); CALCIUM, TOTAL 8.9 mg/dL (8.8-10.5); CARBON DIOXIDE 27 mmol/L (22-29); CHLORIDE 100 mmol/L (98-107); CREATININE 1.13 mg/dL (0.60-1.30); GLOMERULAR FILTR. RATE CALC > 60 mL/min (>60); GLUCOSE,RANDOM 171 mg/dL (70-110); POTASSIUM 4.3 mmol/L (3.5-5.1); SODIUM SERUM 138 mmol/L (136-145); UREA NITROGEN, BLOOD 17 mg/dL (7-18)
[2020-08-01 01:21] LABS: PROTHROMBIN TIME 10.9 SEC (9.4-11.6)
[2020-08-01] MEDS ORDERED: IOHEXOL 350 MG/ML 100 ML VIAL ONE (01:26)
[2020-08-01] MEDS ORDERED: SODIUM CHLORIDE 0.9% 100 ML ONE (01:27)
[2020-08-01 01:39] LABS: ALANINE AMINOTRANSFERASE 20 U/L (12-78); ALBUMIN 3.9 g/dL (3.4-5.0); ALKALINE PHOSPHATASE 111 U/L (46-116); ASPARTATE AMINOTRANSFERASE 12 U/L (15-37); BILIRUBIN,TOTAL 0.5 mg/dL (0.1-1.0); CREATINE KINASE, TOTAL ONLY 95 U/L (39-308)
[2020-08-01 01:45] LABS: GLUCOSE,POINT OF CARE 128 MG/DL (70-110)
[2020-08-01 01:47] LABS: LACTIC ACID 2.4 mmol/L (0.4-2.0)
[2020-08-01 04:18] LABS: B-TYPE NATRIURETIC PEPTIDE 12 pg/mL (0-100)
[2020-08-01 04:59] LABS: COVID AG,FIA SOURCE NASOPHARYNGEAL
[2020-08-01] MEDS ORDERED: SODIUM CHLORIDE 0.9% 2,400 ML IV ONE (05:00)
[2020-08-01] MEDS ORDERED: MORPHINE SULFATE 4 MG/ML SYRINGE IVP PRN (05:15)
[2020-08-01] MEDS ORDERED: ONDANSETRON HCL 4 MG/2 ML VIAL IVP PRN (05:15)
[2020-08-01] MEDS ORDERED: CLINDAMYCIN 900 MG/D5% WATER 50 ML IV ONE (05:15)
[2020-08-01] MEDS ORDERED: PEG 3350/NA SULF,BICARB,CL/KCL 4000 ML SOLUTION PO ONE (08:15)
[2020-08-01 08:58] VITALS: BP 140/85
[2020-08-01] MEDS: MINERAL OIL 133 ML ENEMA PR SCH ×3 (09:00→20:26)
[2020-08-01 09:01] VITALS: BP 140/85
[2020-08-01] MEDS: SODIUM CHLORIDE 0.9% 1,000 ML IV SCH ×2 (10:33→20:20)
[2020-08-01 11:16] VITALS: BP 131/76
[2020-08-01 15:21] VITALS: BP 124/60
[2020-08-01 15:50] LABS: GLUCOMETER DEV NAME(LOC) 5N.1C; GLUCOSE,POINT OF CARE 190 MG/DL (70-110)
[2020-08-01] MEDS ORDERED: DEXTROSE 50%-WATER 25 GM/50 ML SYRINGE IVP PRN (17:00)
[2020-08-01 20:30] VITALS: BP 120/76
[2020-08-02 00:15] VITALS: BP 112/78
[2020-08-02 02:07] LABS: GLUCOMETER DEV NAME(LOC) 5N.1C; GLUCOSE,POINT OF CARE 140 MG/DL (70-110)
[2020-08-02 02:07] LABS: GLUCOMETER DEV NAME(LOC) 5S.1; GLUCOSE,POINT OF CARE 109 MG/DL (70-110)
[2020-08-02] MEDS: SODIUM CHLORIDE 0.9% 1,000 ML IV SCH ×2 (04:41→12:00)
[2020-08-02 04:57] VITALS: BP 109/75
[2020-08-02 06:45] LABS: BASOPHILS % (AUTO) 0.4 % (0.0-2.0); EOSINOPHILS % (AUTO) 2.4 % (1.0-6.0); HEMATOCRIT 39.5 % (41-53); HEMOGLOBIN 13.5 g/dL (13.5-17.5); LYMPHOCYTES # (AUTO) 2.3 K/uL (1.0-4.8); LYMPHOCYTES % (AUTO) 23.5 % (22.0-44.0); MEAN CORPUSCULAR HEMOGLOBIN 32.1 pg (26.0-34.0); MEAN CORPUSCULAR HGB CONC 34.2 G/dL (31.0-37.0); MEAN CORPUSCULAR VOLUME 94 fL (80-100); MONOCYTES # (AUTO) 1.1 K/uL (0.1-1.0); MONOCYTES % (AUTO) 10.7 % (2.0-9.0); NEUTROPHILS # (AUTO) 6.2 K/uL (1.8-7.7); PLATELET COUNT (AUTO) 198 K/uL (150-450); RED BLOOD CELL COUNT(AUTO) 4.22 MIL/uL (4.50-5.90); RED CELL DISTRIBUTION WIDTH 14.9 % (11.5-14.5)
[2020-08-02 07:03] LABS: ANION GAP 10 mmol/L (8-16); CALCIUM, TOTAL 8.4 mg/dL (8.8-10.5); CARBON DIOXIDE 25 mmol/L (22-29); CHLORIDE 106 mmol/L (98-107); CREATININE 0.82 mg/dL (0.60-1.30); GLOMERULAR FILTR. RATE CALC > 60 mL/min (>60); GLUCOSE,RANDOM 110 mg/dL (70-110); POTASSIUM 4.4 mmol/L (3.5-5.1); SODIUM SERUM 141 mmol/L (136-145); UREA NITROGEN, BLOOD 7 mg/dL (7-18)
[2020-08-02 07:50] VITALS: BP 110/70
[2020-08-02] MEDS: MINERAL OIL 133 ML ENEMA PR SCH ×3 (08:29→20:36)
[2020-08-02 10:02] LABS: GLUCOMETER DEV NAME(LOC) 5S.1; GLUCOSE,POINT OF CARE 104 MG/DL (70-110)
[2020-08-02 12:09] LABS: GLUCOMETER DEV NAME(LOC) 5N.1C; GLUCOSE,POINT OF CARE 136 MG/DL (70-110)
[2020-08-02 12:21] VITALS: BP 115/77
[2020-08-02] MEDS: POLYETHYLENE GLYCOL 3350 17 GM PACKET PO SCH (14:17)
[2020-08-02] MEDS ORDERED: SODIUM PHOS/SODIUM BIPHOS 133 ML ENEMA PR ONE (14:45)
[2020-08-02] MEDS: MAG HYDROX/AL HYDROX/SIMETH ES 30 ML SUSPENSION UDCUP PO PRN (15:33)
[2020-08-02 16:16] VITALS: BP 141/100
[2020-08-02] MEDS: INSULIN LISPRO 100 UNITS/ML SQ PRN (17:11)
[2020-08-02 18:21] LABS: GLUCOMETER DEV NAME(LOC) 6N.1; GLUCOSE,POINT OF CARE 157 MG/DL (70-110)
[2020-08-02 20:00] VITALS: BP 120/84
[2020-08-02 21:04] LABS: GLUCOMETER DEV NAME(LOC) 6N.1; GLUCOSE,POINT OF CARE 139 MG/DL (70-110)
[2020-08-02] MEDS: BISACODYL 10 MG RECTAL RECTAL SUPPOSITORY PR SCH (21:22)
[2020-08-03 00:17] VITALS: BP 126/84
[2020-08-03] MEDS: MAG HYDROX/AL HYDROX/SIMETH ES 30 ML SUSPENSION UDCUP PO PRN ×2 (00:39→12:55)
[2020-08-03 04:10] VITALS: BP 113/78
[2020-08-03] MEDS: INSULIN LISPRO 100 UNITS/ML SQ PRN ×3 (06:15→19:02)
[2020-08-03 06:51] LABS: GLUCOMETER DEV NAME(LOC) 6S.1; GLUCOSE,POINT OF CARE 156 MG/DL (70-110)
[2020-08-03 07:30] VITALS: BP 114/77
[2020-08-03] MEDS: POLYETHYLENE GLYCOL 3350 17 GM PACKET PO SCH (08:41)
[2020-08-03] MEDS: MINERAL OIL 133 ML ENEMA PR SCH ×3 (09:41→21:50)
[2020-08-03] MEDS: BISACODYL 10 MG RECTAL RECTAL SUPPOSITORY PR SCH ×2 (09:41→21:13)
[2020-08-03] MEDS: BETHANECHOL CHLORIDE 10 MG TABLET PO SCH (12:13)
[2020-08-03 12:46] LABS: GLUCOMETER DEV NAME(LOC) 6N.1; GLUCOSE,POINT OF CARE 160 MG/DL (70-110)
[2020-08-03 15:30] VITALS: BP 116/64
[2020-08-03 19:27] LABS: GLUCOMETER DEV NAME(LOC) 6S.1; GLUCOSE,POINT OF CARE 152 MG/DL (70-110)
[2020-08-03 20:13] VITALS: BP 131/60
[2020-08-03 23:32] VITALS: BP 107/74
[2020-08-04 02:04] LABS: GLUCOMETER DEV NAME(LOC) 6N.1; GLUCOSE,POINT OF CARE 127 MG/DL (70-110)
[2020-08-04 04:48] VITALS: BP 118/85
[2020-08-04] MEDS: INSULIN LISPRO 100 UNITS/ML SQ PRN ×4 (05:27→20:34)
[2020-08-04] MEDS: BETHANECHOL CHLORIDE 10 MG TABLET PO SCH (06:45)
[2020-08-04 07:04] LABS: GLUCOMETER DEV NAME(LOC) 6N.1; GLUCOSE,POINT OF CARE 158 MG/DL (70-110)
[2020-08-04 07:50] VITALS: BP 120/88
[2020-08-04] MEDS: BISACODYL 10 MG RECTAL RECTAL SUPPOSITORY PR SCH ×2 (08:08→20:32)
[2020-08-04] MEDS: MINERAL OIL 133 ML ENEMA PR SCH ×3 (08:08→20:33)
[2020-08-04] MEDS: POLYETHYLENE GLYCOL 3350 17 GM PACKET PO SCH (08:08)
[2020-08-04] MEDS: MAG HYDROX/AL HYDROX/SIMETH ES 30 ML SUSPENSION UDCUP PO PRN (08:09)
[2020-08-04] MEDS: LACTULOSE 20 GM/30 ML SOLUTION UDCUP PO SCH ×2 (12:28→20:33)
[2020-08-04 14:45] LABS: GLUCOMETER DEV NAME(LOC) 6S.1; GLUCOSE,POINT OF CARE 237 MG/DL (70-110)
[2020-08-04 15:40] VITALS: BP 123/89
[2020-08-04 19:19] LABS: GLUCOMETER DEV NAME(LOC) 6N.1; GLUCOSE,POINT OF CARE 250 MG/DL (70-110)
[2020-08-04 19:40] VITALS: BP 139/94
[2020-08-04 21:43] LABS: GLUCOMETER DEV NAME(LOC) 6S.1; GLUCOSE,POINT OF CARE 198 MG/DL (70-110)
[2020-08-05 00:05] VITALS: BP 144/90
[2020-08-05] MEDS: INSULIN LISPRO 100 UNITS/ML SQ PRN ×2 (05:15→11:27)
[2020-08-05 05:30] VITALS: BP 110/87
[2020-08-05 06:11] LABS: GLUCOMETER DEV NAME(LOC) 6S.1; GLUCOSE,POINT OF CARE 216 MG/DL (70-110)
[2020-08-05] MEDS: BETHANECHOL CHLORIDE 10 MG TABLET PO SCH (06:36)
[2020-08-05 07:58] VITALS: BP 114/85
[2020-08-05] MEDS: LACTULOSE 20 GM/30 ML SOLUTION UDCUP PO SCH (09:07)
[2020-08-05] MEDS: POLYETHYLENE GLYCOL 3350 17 GM PACKET PO SCH (09:07)
[2020-08-05] MEDS: MINERAL OIL 133 ML ENEMA PR SCH (09:08)
[2020-08-05] MEDS: BISACODYL 10 MG RECTAL RECTAL SUPPOSITORY PR SCH (09:08)
[2020-08-05] MEDS ORDERED: POLY17PO47 PO (11:33)
[2020-08-05] MEDS ORDERED: BISA10SU11 PR (11:33)
[2020-08-05] MEDS ORDERED: LACT30L PO (11:33)
[2020-08-05] MEDS ORDERED: BETH10 PO (11:33)
[2020-08-05 11:56] LABS: GLUCOMETER DEV NAME(LOC) 6S.1; GLUCOSE,POINT OF CARE 228 MG/DL (70-110)
== END 2020-08-05 16:21 | disposition home or self-care (01) | DRG 247 ==
LOC: EMS 21:44 → 5S 08-01 05:00 → 6N 08-02 14:55
PROVIDERS: ADMIT Internal Medicine; ATTEND Internal Medicine
DX: K56.41 Fecal impaction (principal); E87.2 Acidosis; E11.65 Type 2 diabetes mellitus with hyperglycemia; K52.89 Other specified noninfective gastroenteritis and colitis; Z94.0 Kidney transplant status; F20.0 Paranoid schizophrenia; F41.9 Anxiety disorder, unspecified; M10.9 Gout, unspecified; M54.9 Dorsalgia, unspecified; G89.29 Other chronic pain; E78.00 Pure hypercholesterolemia, unspecified; R00.0 Tachycardia, unspecified; R33.9 Retention of urine, unspecified; Z20.822 Contact with and (suspected) exposure to COVID-19
CPT/HCPCS: 71045; 74019; 74177; 80048; 80053; 82550; 82962; 83036; 83605; 83880; 84484; 85025; 85610; 87040; 87426; 93005; 99285; A9575; J2270; J2405; J3490; J7030; J7050; 36415-L1; 36415-TC

== ENCOUNTER 2021-08-15 10:24 | Emergency (ER) | payer MEDICAID ==
[~2021-08-15] VITALS: Ht 180.3 cm; Wt 77.3 kg
[~2021-08-15 10:24] MED LIST changes: +BETH10 PO; +BISA10SU11 PR; +BUPR-50 PO; -BUPR-93 PO; -ENOX30DI5 SQ; +ENOX30SY19 SQ; +LACT10SO10 PO; +METF-1211 PO; -METF-960 PO; +POLY17PO47 PO
[2021-08-15 12:04] LABS: BASOPHILS % (AUTO) 0.5 % (0.0-2.0); EOSINOPHILS % (AUTO) 0.9 % (1.0-6.0); HEMATOCRIT 40.8 % (41-53); HEMOGLOBIN 13.9 g/dL (13.5-17.5); LYMPHOCYTES # (AUTO) 1.7 K/uL (1.0-4.8); LYMPHOCYTES % (AUTO) 27.1 % (22.0-44.0); MEAN CORPUSCULAR HEMOGLOBIN 32.6 pg (26.0-34.0); MEAN CORPUSCULAR HGB CONC 34.2 G/dL (31.0-37.0); MEAN CORPUSCULAR VOLUME 96 fL (80-100); MONOCYTES # (AUTO) 0.7 K/uL (0.1-1.0); NEUTROPHILS # (AUTO) 3.8 K/uL (1.8-7.7); NEUTROPHILS % (AUTO) 60.5 % (40.0-70.0); PLATELET COUNT (AUTO) 210 K/uL (150-450); RED BLOOD CELL COUNT(AUTO) 4.27 MIL/uL (4.50-5.90); RED CELL DISTRIBUTION WIDTH 15.1 % (11.5-14.5)
[2021-08-15 12:12] LABS: ANION GAP 12 mmol/L (8-16); CALCIUM, TOTAL 8.9 mg/dL (8.8-10.5); CARBON DIOXIDE 25 mmol/L (22-29); CHLORIDE 105 mmol/L (98-107); CREATININE 1.14 mg/dL (0.60-1.30); GLOMERULAR FILTR. RATE CALC > 60 mL/min (>60); GLUCOSE,RANDOM 177 mg/dL (70-110); SODIUM SERUM 142 mmol/L (136-145); UREA NITROGEN, BLOOD 16 mg/dL (7-18)
[2021-08-15 12:18] LABS: ALANINE AMINOTRANSFERASE 15 U/L (12-78); ALBUMIN 3.5 g/dL (3.4-5.0); ALKALINE PHOSPHATASE 102 U/L (46-116); ASPARTATE AMINOTRANSFERASE 9 U/L (15-37); BILIRUBIN,TOTAL 0.3 mg/dL (0.1-1.0)
[2021-08-15] MEDS ORDERED: TAMS-13 PO (16:22)
[2021-08-15 16:41] LABS: APPEARANCE,URINE CLEAR (CLEAR); BILIRUBIN,URINE NEGATIVE (NEGATIVE); GLUCOSE, URINE (UA) NEGATIVE (NEGATIVE); KETONES,URINE NEGATIVE (NEGATIVE); LEUKOCYTE ESTERASE ,URINE NEGATIVE (NEGATIVE); NITRATE,URINE NEGATIVE (NEGATIVE); OCCULT BLOOD,URINE NEGATIVE (NEGATIVE); PH,URINE 5.5 (5.0-8.0); PROTEIN,URINE 30-70 mg/dL (NEGATIVE); SPECIFIC GRAVITIY, URINE 1.022 (1.003-1.030); UROBILINOGEN,URINE <=1.0 mg/dL (<=1.0)
[2021-08-15 16:53] VITALS: BP 132/79
== END 2021-08-15 17:24 | disposition home or self-care (01) ==
LOC: EMS 10:24
DX: R31.9 Hematuria, unspecified (principal); K59.00 Constipation, unspecified; E11.9 Type 2 diabetes mellitus without complications; E78.00 Pure hypercholesterolemia, unspecified; I10 Essential (primary) hypertension; F17.210 Nicotine dependence, cigarettes, uncomplicated; Z87.442 Personal history of urinary calculi; Z98.890 Other specified postprocedural states; Z91.040 Latex allergy status; Z88.8 Allergy status to other drugs, medicaments and biological substances
CPT/HCPCS: 74176; 80053; 81002; 81003; 82962; 85025; 99285